=== PATIENT | male | born 1965 | race Caucasian/White ===

== ENCOUNTER 2016-07-20 08:51 | Inpatient (IN) | payer OTHER ==
[~2016-07-20] VITALS: Ht 182.9 cm; Wt 65.1 kg
[2016-07-20] MEDS ORDERED: ASPI-496 PO (09:36)
[2016-07-20] MEDS ORDERED: METO25TA2 PO (09:46)
[2016-07-20] MEDS ORDERED: POTA10TA11 PO (09:46)
[2016-07-20] MEDS ORDERED: IPRA12.9 INH (09:46)
[2016-07-20] MEDS ORDERED: [UNRECOGNIZED DRUG - CODE] PO (09:46)
[2016-07-20] MEDS ORDERED: FURO20TA3 PO (09:46)
[2016-07-20] MEDS ORDERED: ALBUTEROL (09:46)
[2016-07-20] MEDS ORDERED: LISI-170 PO (09:46)
[2016-07-20] MEDS ORDERED: FUROSEMIDE 20 MG/2 ML ONE (09:57)
[2016-07-20] MEDS ORDERED: FUROSEMIDE 20 MG/2 ML IVPush ONE (10:00)
[2016-07-20] MEDS ORDERED: SODIUM CHLORIDE FLUSH 10ML SYR IVF ONE (10:00)
[2016-07-20 10:02] LABS: HEMOGLOBIN 15.4 g/dL (13.7-18.0)
[2016-07-20 10:15] LABS: BLOOD UREA NITROGEN 26 mg/dL (7-18)
[2016-07-20 10:20] LABS: IS PT STATUS REG ER OR PRE ER? YES
[2016-07-20] MEDS ORDERED: LEVOFLOXACIN/PMX 750MG/150ML 150 ML ONE (11:49)
[2016-07-20] MEDS ORDERED: LEVOFLOXACIN/PMX 750MG/150ML 150 ML IV ONE (12:00)
[2016-07-20] MEDS ORDERED: ACETAMINOPHEN 325 MG TABLET PO PRN (12:30)
[2016-07-20] MEDS ORDERED: ONDANSETRON 2MG/ML, 2ML IVP PRN (12:30)
[2016-07-20] MEDS ORDERED: MORPHINE SULFATE 4 MG/ML, 1ML IVPush PRN (12:30)
[2016-07-20] MEDS ORDERED: ONDANSETRON ODT 4 MG PO PRN (12:30)
[2016-07-20 13:16] VITALS: BP 139/81
[2016-07-20] MEDS ORDERED: OMNIPAQUE 350 MG/ML, 100ML BOTTLE ONE (13:43)
[2016-07-20] MEDS ORDERED: ALBUTEROL SULFATE 2.5 MG/3 ML ONE (14:15)
[2016-07-20] MEDS ORDERED: ALBUTEROL SULFATE 2.5 MG/3 ML NPPB PRN (14:30)
[2016-07-20] MEDS: CEFTRIAXONE PMX 1GM/50ML 50 ML IV SCH (14:57)
[2016-07-20] MEDS: NICOTINE 14MG/24 HR PATCH.TD24 TD SCH (15:04)
[2016-07-20] MEDS: ENOXAPARIN 40 MG/0.4 ML SQ SCH (15:04)
[2016-07-20 15:19] LABS: IS PT STATUS REG ER OR PRE ER? NO
[2016-07-20] MEDS: DOXYCYCLINE 100 MG in DEXTROSE 5% 250 ML IV SCH (15:21)
[2016-07-20] MEDS: FUROSEMIDE 20 MG/2 ML IV SCH (17:47)
[2016-07-20 22:59] LABS: IS PT STATUS REG ER OR PRE ER? NO
[2016-07-21 02:42] VITALS: BP 120/85
[2016-07-21] MEDS: DOXYCYCLINE 100 MG in DEXTROSE 5% 250 ML IV SCH ×2 (02:51→15:43)
[2016-07-21 06:38] VITALS: BP 122/77
[2016-07-21 06:59] LABS: HEMOGLOBIN 14.9 g/dL (13.7-18.0)
[2016-07-21 07:03] LABS: BLOOD UREA NITROGEN 26 mg/dL (7-18)
[2016-07-21 07:08] LABS: ASPARTATE AMINO TRANSFERASE 138 U/L (15-37)
[2016-07-21] MEDS: METOPROLOL SUCCINATE 25 MG TAB.ER.24H PO SCH (08:31)
[2016-07-21] MEDS: ASPIRIN 81 MG TABLET EC PO SCH (08:31)
[2016-07-21] MEDS: FUROSEMIDE 20 MG/2 ML IV SCH (08:31)
[2016-07-21 10:48] LABS: IS PT STATUS REG ER OR PRE ER? NO
[2016-07-21 12:30] VITALS: BP 107/66
[2016-07-21] MEDS: NICOTINE 14MG/24 HR PATCH.TD24 TD SCH (12:30)
[2016-07-21] MEDS: CEFTRIAXONE PMX 1GM/50ML 50 ML IV SCH (14:10)
[2016-07-21] MEDS ORDERED: LORazepam 2 MG/ML, 1ML IVPush PRN (15:30)
[2016-07-21] MEDS: FUROSEMIDE 40 MG/4 ML IV SCH (15:43)
[2016-07-21] MEDS: ENOXAPARIN 40 MG/0.4 ML SQ SCH (15:44)
[2016-07-21 15:48] LABS: ABG COLLECTION SITE RIGHT RADIAL; COLLATERAL CIRCULATION TESTING NORMAL
[2016-07-21 20:00] VITALS: BP 110/58
[2016-07-22 01:26] VITALS: BP 112/62
[2016-07-22] MEDS: DOXYCYCLINE 100 MG in DEXTROSE 5% 250 ML IV SCH ×2 (03:50→15:07)
[2016-07-22 06:14] LABS: ASPARTATE AMINO TRANSFERASE 100 U/L (15-37); BLOOD UREA NITROGEN 32 mg/dL (7-18)
[2016-07-22 06:30] VITALS: BP 99/49
[2016-07-22 09:15] VITALS: BP 117/85
[2016-07-22] MEDS: ASPIRIN 81 MG TABLET EC PO SCH (09:33)
[2016-07-22] MEDS: METOPROLOL SUCCINATE 25 MG TAB.ER.24H PO SCH (09:33)
[2016-07-22] MEDS: FUROSEMIDE 40 MG/4 ML IV SCH ×2 (09:34→18:03)
[2016-07-22] MEDS: LISINOPRIL 5 MG TABLET PO SCH (09:34)
[2016-07-22] MEDS: NICOTINE 14MG/24 HR PATCH.TD24 TD SCH (12:30)
[2016-07-22 12:34] VITALS: BP 107/77
[2016-07-22] MEDS: CEFTRIAXONE PMX 1GM/50ML 50 ML IV SCH (14:07)
[2016-07-22] MEDS: ENOXAPARIN 40 MG/0.4 ML SQ SCH (15:08)
[2016-07-22 20:00] VITALS: BP 112/74
[2016-07-23] VITALS (7 sets, daily range): BP systolic 91–106; BP diastolic 55–74
[2016-07-23] MEDS: DOXYCYCLINE 100 MG in DEXTROSE 5% 250 ML IV SCH ×3 (05:14→20:19)
[2016-07-23 09:02] LABS: BLOOD UREA NITROGEN 29 mg/dL (7-18)
[2016-07-23] MEDS: METOPROLOL SUCCINATE 25 MG TAB.ER.24H PO SCH (09:16)
[2016-07-23] MEDS: LISINOPRIL 5 MG TABLET PO SCH (09:16)
[2016-07-23] MEDS: POTASSIUM CHLORIDE 20 MEQ TAB.ER.PRT PO SCH (09:16)
[2016-07-23] MEDS: ASPIRIN 81 MG TABLET EC PO SCH (09:16)
[2016-07-23] MEDS: FUROSEMIDE 40 MG/4 ML IV SCH ×2 (09:16→17:00)
[2016-07-23] MEDS: NICOTINE 14MG/24 HR PATCH.TD24 TD SCH (13:40)
[2016-07-23 14:55] LABS: BLOOD UREA NITROGEN 26 mg/dL (7-18)
[2016-07-23 14:58] LABS: ASPARTATE AMINO TRANSFERASE 93 U/L (15-37)
[2016-07-23] MEDS ORDERED: MAGNESIUM SULFATE PMX 2GM/50ML 50 ML IV ONE (16:00)
[2016-07-23] MEDS: CEFTRIAXONE PMX 1GM/50ML 50 ML IV SCH (16:02)
[2016-07-23] MEDS: ENOXAPARIN 40 MG/0.4 ML SQ SCH (16:02)
[2016-07-24 03:58] VITALS: BP 98/69
[2016-07-24 06:53] LABS: ASPARTATE AMINO TRANSFERASE 93 U/L (15-37); BLOOD UREA NITROGEN 26 mg/dL (7-18)
[2016-07-24] MEDS: DOXYCYCLINE 100 MG in DEXTROSE 5% 250 ML IV SCH (07:00)
[2016-07-24] MEDS: FUROSEMIDE 40 MG/4 ML IV SCH ×2 (07:30→11:00)
[2016-07-24 08:48] VITALS: BP 98/68
[2016-07-24] MEDS: POTASSIUM CHLORIDE 20 MEQ TAB.ER.PRT PO SCH (11:00)
[2016-07-24] MEDS: DOXYCYCLINE 100MG TABLET PO SCH ×2 (11:00→20:52)
[2016-07-24] MEDS: ASPIRIN 81 MG TABLET EC PO SCH (11:01)
[2016-07-24] MEDS: MAGNESIUM OXIDE 400 MG TABLET PO SCH (11:01)
[2016-07-24] MEDS: METOPROLOL SUCCINATE 25 MG TAB.ER.24H PO SCH (11:01)
[2016-07-24] MEDS: LISINOPRIL 5 MG TABLET PO SCH (11:01)
[2016-07-24 13:17] VITALS: BP 101/68
[2016-07-24] MEDS: ENOXAPARIN 40 MG/0.4 ML SQ SCH (15:00)
[2016-07-24] MEDS: NICOTINE 14MG/24 HR PATCH.TD24 TD SCH (16:02)
[2016-07-24] MEDS: CEFTRIAXONE PMX 1GM/50ML 50 ML IV SCH (16:02)
[2016-07-24 18:38] VITALS: BP 103/64
[2016-07-25 02:06] VITALS: BP 99/68
[2016-07-25 06:08] LABS: ASPARTATE AMINO TRANSFERASE 123 U/L (15-37); BLOOD UREA NITROGEN 30 mg/dL (7-18)
[2016-07-25] MEDS ORDERED: DOXY100T PO (08:10)
[2016-07-25] MEDS ORDERED: CEFD300C2 PO (08:10)
[2016-07-25 08:24] VITALS: BP 103/72
[2016-07-25] MEDS: LISINOPRIL 5 MG TABLET PO SCH (08:31)
[2016-07-25] MEDS: FUROSEMIDE 40 MG/4 ML IV SCH (08:31)
[2016-07-25] MEDS: ASPIRIN 81 MG TABLET EC PO SCH (08:31)
[2016-07-25] MEDS: MAGNESIUM OXIDE 400 MG TABLET PO SCH (08:31)
[2016-07-25] MEDS: POTASSIUM CHLORIDE 20 MEQ TAB.ER.PRT PO SCH (08:31)
[2016-07-25] MEDS: DOXYCYCLINE 100MG TABLET PO SCH (08:31)
[2016-07-25] MEDS: METOPROLOL SUCCINATE 25 MG TAB.ER.24H PO SCH (08:32)
[2016-07-25] MEDS ORDERED: SPIR25TA PO (08:41)
== END 2016-07-25 10:40 | disposition home or self-care (01) | DRG 291 ==
LOC: ED 10:03 → EDIP 11:43 → 4EST 12:52 → DCLOUNGE 07-25 10:07
PROVIDERS: ADMIT Internal Medicine; ATTEND Internal Medicine
DX: I11.0 Hypertensive heart disease with heart failure (principal); J18.9 Pneumonia, unspecified organism; E43 Unspecified severe protein-calorie malnutrition; N17.0 Acute kidney failure with tubular necrosis; E87.1 Hypo-osmolality and hyponatremia; J44.0 Chronic obstructive pulmonary disease with (acute) lower respiratory infection; I47.2 Ventricular tachycardia; Z68.1 Body mass index [BMI] 19.9 or less, adult; I24.8 Other forms of acute ischemic heart disease; I50.23 Acute on chronic systolic (congestive) heart failure; I42.0 Dilated cardiomyopathy; E87.5 Hyperkalemia; F17.210 Nicotine dependence, cigarettes, uncomplicated; I27.2 Other secondary pulmonary hypertension; K76.1 Chronic passive congestion of liver; I25.10 Atherosclerotic heart disease of native coronary artery without angina pectoris; Z87.01 Personal history of pneumonia (recurrent); Z88.0 Allergy status to penicillin; Z88.5 Allergy status to narcotic agent; Z79.82 Long term (current) use of aspirin; Z79.899 Other long term (current) drug therapy; Z71.6 Tobacco abuse counseling; Z80.3 Family history of malignant neoplasm of breast; Z83.3 Family history of diabetes mellitus; Z82.49 Family history of ischemic heart disease and other diseases of the circulatory system
CPT/HCPCS: 36415; 36600; 71010; 71275; 80047; 80048; 80053; 80061; 82040; 82803; 83605; 83735; 83880; 84100; 84443; 84484; 85025; 85379; 87040; 93005; 93306; 94640; 96374; J0696; J1650; J1940; J1956; J7060; J7613; Q9967; J2060; J3475

== ENCOUNTER 2016-11-04 08:27 | Inpatient (IN) | payer OTHER ==
[~2016-11-04] VITALS: Ht 180.3 cm; Wt 69.8 kg
[~2016-11-04 08:27] MED LIST: ALBUTEROL; ASPI-496 PO; CEFD300C37 PO; DOXY100T PO; FURO20TA3 PO; IPRA12.9 INH; LISI-170 PO; METO25TA2 PO; POTA10TA11 PO; SPIR25TA PO; [UNRECOGNIZED DRUG - CODE] PO
[2016-11-04] MEDS ORDERED: FUROSEMIDE 40 MG/4 ML IV ONE (09:30)
[2016-11-04 09:38] LABS: BLOOD UREA NITROGEN 26 mg/dL (7-18)
[2016-11-04 09:44] LABS: ASPARTATE AMINO TRANSFERASE 101 U/L (15-37)
[2016-11-04 09:45] LABS: IS PT STATUS REG ER OR PRE ER? YES
[2016-11-04] MEDS ORDERED: ONDANSETRON 2MG/ML, 2ML IVPush PRN ×2 (10:00→15:00)
[2016-11-04] MEDS ORDERED: SODIUM CHLORIDE FLUSH 10ML SYR IVF PRN (10:00)
[2016-11-04] MEDS ORDERED: FUROSEMIDE 40 MG/4 ML ONE ×2 (10:09→10:19)
[2016-11-04] MEDS ORDERED: GUAIFENESIN/DM 200-20MG, 10ML UDC PO PRN (15:00)
[2016-11-04] MEDS ORDERED: DOCUSATE 100 MG CAPSULE PO PRN (15:00)
[2016-11-04] MEDS ORDERED: LABETALOL 5MG/ML, 20ML IVPush PRN (15:00)
[2016-11-04] MEDS ORDERED: ACETAMINOPHEN 325 MG TABLET PO PRN (15:00)
[2016-11-04] MEDS ORDERED: NITROGLYCERIN 0.4 MG/SPRAY SL PRN (15:00)
[2016-11-04] MEDS ORDERED: TEMAZEPAM 15 MG CAPSULE PO PRN (15:00)
[2016-11-04] MEDS ORDERED: ENALAPRILAT 1.25 MG/ML, 2ML IVPush PRN (15:00)
[2016-11-04 15:33] LABS: IS PT STATUS REG ER OR PRE ER? NO
[2016-11-04 20:02] VITALS: BP 126/72
[2016-11-04] MEDS: ENOXAPARIN 40 MG/0.4 ML SQ SCH (20:12)
[2016-11-04] MEDS: POTASSIUM CHLORIDE 10 MEQ TABLET.ER PO SCH (20:12)
[2016-11-04] MEDS: FUROSEMIDE 20 MG/2 ML IV SCH (20:12)
[2016-11-04 20:19] LABS: IS PT STATUS REG ER OR PRE ER? NO
[2016-11-05 01:09] VITALS: BP 108/64
[2016-11-05 06:28] LABS: BLOOD UREA NITROGEN 31 mg/dL (7-18)
[2016-11-05 06:35] LABS: ASPARTATE AMINO TRANSFERASE 71 U/L (15-37)
[2016-11-05] MEDS ORDERED: HYDROcodone/CHLORPHENIR ORAL SUSP ONE (07:49)
[2016-11-05] MEDS: SPIRONOLACTONE 25 MG TABLET PO SCH (07:53)
[2016-11-05] MEDS: FUROSEMIDE 20 MG/2 ML IV SCH ×2 (07:53→19:44)
[2016-11-05] MEDS: ASPIRIN 81 MG TABLET EC PO SCH (07:53)
[2016-11-05] MEDS: LISINOPRIL 20 MG TABLET PO SCH (07:54)
[2016-11-05] MEDS: METOPROLOL SUCCINATE 25 MG TAB.ER.24H PO SCH (07:54)
[2016-11-05] MEDS: POTASSIUM CHLORIDE 10 MEQ TABLET.ER PO SCH ×2 (07:54→19:43)
[2016-11-05] MEDS: HYDROcodone/CHLORPHENIR ORAL SUSP PO SCH (07:56)
[2016-11-05 10:21] VITALS: BP 94/65
[2016-11-05 14:45] VITALS: BP 102/69
[2016-11-05] MEDS: ENOXAPARIN 40 MG/0.4 ML SQ SCH (19:44)
[2016-11-05 19:45] VITALS: BP 110/62
[2016-11-06 00:54] VITALS: BP 110/62
[2016-11-06 05:02] LABS: BLOOD UREA NITROGEN 39 mg/dL (7-18)
[2016-11-06 05:05] LABS: ASPARTATE AMINO TRANSFERASE 42 U/L (15-37)
[2016-11-06] MEDS: THIAMINE 100MG TABLET PO SCH (08:14)
[2016-11-06] MEDS: LISINOPRIL 20 MG TABLET PO SCH (08:14)
[2016-11-06] MEDS: ASPIRIN 81 MG TABLET EC PO SCH (08:14)
[2016-11-06] MEDS: FOLIC ACID 1 MG TABLET PO SCH (08:14)
[2016-11-06] MEDS: FUROSEMIDE 20 MG/2 ML IV SCH ×2 (08:14→17:36)
[2016-11-06] MEDS: MULTIVIT.W/IRON, MINERALS ORAL SOL PO SCH (08:14)
[2016-11-06] MEDS: SPIRONOLACTONE 25 MG TABLET PO SCH (08:14)
[2016-11-06] MEDS: POTASSIUM CHLORIDE 10 MEQ TABLET.ER PO SCH ×2 (08:14→17:36)
[2016-11-06 08:19] VITALS: BP 97/61
[2016-11-06 09:15] LABS: HEPATITIS C VIRUS ANTIBODY Nonreactive (Nonreactive)
[2016-11-06] MEDS: METOPROLOL SUCCINATE 25 MG TAB.ER.24H PO SCH (11:04)
[2016-11-06] MEDS: HYDROcodone/CHLORPHENIR ORAL SUSP PO SCH (12:04)
[2016-11-06] MEDS ORDERED: BIVALIRUDIN 250 MG ONE (13:21)
[2016-11-06] MEDS ORDERED: VERAPAMIL 2.5 MG/ML, 2ML ONE (13:21)
[2016-11-06] MEDS ORDERED: MIDAZOLAM 1 MG/ML, 5ML ONE (13:21)
[2016-11-06] MEDS ORDERED: TICAGRELOR 90 MG TABLET ONE (13:21)
[2016-11-06] MEDS ORDERED: HEPARIN 1,000 UNITS/ML, 10ML ONE (13:21)
[2016-11-06] MEDS ORDERED: NITROGLYCERIN 5 MG/ML, 10ML ONE (13:21)
[2016-11-06] MEDS ORDERED: LIDOCAINE 2%, 20ML ONE (13:21)
[2016-11-06] MEDS ORDERED: FENTANYL PF 100 MCG/2ML ONE (13:21)
[2016-11-06 15:40] VITALS: BP 89/55
[2016-11-06 19:58] VITALS: BP 97/64
[2016-11-06] MEDS: ENOXAPARIN 40 MG/0.4 ML SQ SCH (21:05)
[2016-11-07 02:41] VITALS: BP 107/72
[2016-11-07 05:33] LABS: BLOOD UREA NITROGEN 38 mg/dL (7-18)
[2016-11-07 07:50] VITALS: BP 123/80
[2016-11-07] MEDS ORDERED: PNEUMOCOCCAL 23 VACCINE IM-VACC ONE (08:00)
[2016-11-07] MEDS ORDERED: LISINOPRIL 20 MG TABLET PO SCH (09:00)
[2016-11-07] MEDS ORDERED: METOPROLOL SUCCINATE 25 MG TAB.ER.24H PO SCH (09:00)
[2016-11-07] MEDS: FOLIC ACID 1 MG TABLET PO SCH (09:17)
[2016-11-07] MEDS: ASPIRIN 81 MG TABLET EC PO SCH (09:17)
[2016-11-07] MEDS: POTASSIUM CHLORIDE 10 MEQ TABLET.ER PO SCH (09:17)
[2016-11-07] MEDS: FUROSEMIDE 20 MG/2 ML IV SCH (09:18)
[2016-11-07] MEDS: SPIRONOLACTONE 25 MG TABLET PO SCH (09:18)
[2016-11-07] MEDS: THIAMINE 100MG TABLET PO SCH (09:18)
[2016-11-07] MEDS: HYDROcodone/CHLORPHENIR ORAL SUSP PO SCH (09:20)
[2016-11-07] MEDS: MULTIVIT.W/IRON, MINERALS ORAL SOL PO SCH (09:20)
[2016-11-07] MEDS ORDERED: RIVAROXABAN 20 MG TABLET PO SCH (11:00)
[2016-11-07] MEDS ORDERED: FOLI-17 PO (11:50)
[2016-11-07] MEDS ORDERED: MULT9LIQ3 PO (11:50)
[2016-11-07] MEDS ORDERED: THIA100T6 PO (11:50)
[2016-11-07] MEDS ORDERED: POTA10TA5 PO (11:50)
[2016-11-07] MEDS ORDERED: RIVA20TA PO (11:50)
[2016-11-07] MEDS ORDERED: FURO20TA3 PO (11:50)
[2016-11-07] MEDS ORDERED: SPIR25TA PO (11:50)
[2016-11-07] MEDS ORDERED: ASPI-496 PO (11:50)
[2016-11-07] MEDS ORDERED: METO25TA2 PO (11:50)
[2016-11-07] MEDS ORDERED: LISI-170 PO (11:50)
[2016-11-08] MEDS ORDERED: FUROSEMIDE 40 MG TABLET PO SCH (09:00)
== END 2016-11-07 13:40 | disposition home or self-care (01) | DRG 286 ==
LOC: ED 09:30 → EDIP 09:56 → 5SO 11:33 → DCLOUNGE 11-07 12:09
PROVIDERS: ADMIT Hospitalist; ATTEND Hospitalist
PROC: 4A023N7 Measurement of Cardiac Sampling and Pressure, Left Heart, Percutaneous Approach (ICD-10-PCS; principal; 2016-11-06)
PROC: B2111ZZ Fluoroscopy of Multiple Coronary Arteries using Low Osmolar Contrast (ICD-10-PCS; 2016-11-06)
PROC: B2151ZZ Fluoroscopy of Left Heart using Low Osmolar Contrast (ICD-10-PCS; 2016-11-06)
DX: I25.10 Atherosclerotic heart disease of native coronary artery without angina pectoris (principal); I50.21 Acute systolic (congestive) heart failure; N17.9 Acute kidney failure, unspecified; I11.0 Hypertensive heart disease with heart failure; J44.9 Chronic obstructive pulmonary disease, unspecified; F17.210 Nicotine dependence, cigarettes, uncomplicated; F15.10 Other stimulant abuse, uncomplicated; Z87.01 Personal history of pneumonia (recurrent); Z88.5 Allergy status to narcotic agent; Z88.0 Allergy status to penicillin; Z91.19 Patient's noncompliance with other medical treatment and regimen; Z72.89 Other problems related to lifestyle; Z71.6 Tobacco abuse counseling; Z59.9 Problem related to housing and economic circumstances, unspecified
CPT/HCPCS: 36415; 71010; 76700; 80048; 80053; 80074; 83735; 83880; 84100; 84443; 84484; 85025; 90732; 93005; 93306; 93454; 96374; 99156; C1760; C1894; J0583; J1644; J1650; J1940; J2250; J3010; J3490; Q9967

== ENCOUNTER 2016-11-13 09:20 | Inpatient (IN) | payer OTHER ==
[~2016-11-13] VITALS: Ht 182.9 cm; Wt 68.4 kg
[~2016-11-13 09:20] MED LIST changes: +FOLI-17 PO; +MULT9LIQ3 PO; +POTA10TA5 PO; +RIVA20TA PO; +THIA100T6 PO
[2016-11-13] MEDS ORDERED: SODIUM CHLORIDE FLUSH 10ML SYR IVF ONE (09:30)
[2016-11-13 09:54] LABS: HEMATOCRIT 41.5 % (39.2-51.8); HEMOGLOBIN 13.4 g/dL (13.7-18.0); WHITE BLOOD COUNT 19.3 x10^3/uL (3.4-10)
[2016-11-13 09:57] LABS: BLOOD UREA NITROGEN 29 mg/dL (7-18)
[2016-11-13 10:01] LABS: IS PT STATUS REG ER OR PRE ER? YES
[2016-11-13] MEDS ORDERED: LEVOFLOXACIN/PMX 750MG/150ML 150 ML IVPB ONE (10:30)
[2016-11-13] MEDS ORDERED: SODIUM CHLORIDE 0.9% 1,000ML IVBOLUS ONE (10:30)
[2016-11-13] MEDS ORDERED: RIVA20TA PO (10:31)
[2016-11-13 10:36] LABS: DIFF TOTAL CELLS COUNTED 100 CELL DIFF
[2016-11-13] MEDS ORDERED: ALBU18HF INH (10:36)
[2016-11-13 10:38] LABS: VERIFY COUNTS? YES
[2016-11-13 10:39] LABS: ANISOCYTOSIS 1+; POLYCHROMASIA 1+
[2016-11-13] MEDS ORDERED: SODIUM CHLORIDE 0.9% 1,000 ML IV ONE (11:30)
[2016-11-13] MEDS ORDERED: MIDAZOLAM 1 MG/ML, 5ML IVPush ONE ×2 (11:30→12:30)
[2016-11-13] MEDS ORDERED: ETOMIDATE 20 MG/10 ML IVPush ONE (11:30)
[2016-11-13] MEDS ORDERED: PROPOFOL 100 ML IV PRN (11:30)
[2016-11-13] MEDS ORDERED: VECURONIUM 10 MG IVPush ONE (11:30)
[2016-11-13] MEDS ORDERED: LEVOFLOXACIN/PMX 750MG/150ML 150 ML ONE (11:33)
[2016-11-13 11:41] LABS: ABG COLLECTION SITE LEFT RADIAL; COLLATERAL CIRCULATION TESTING NORMAL
[2016-11-13] MEDS ORDERED: PIPERACILLIN/TAZO/PMX 3.375GM 50 ML ONE (11:56)
[2016-11-13] MEDS: PIPERACILLIN/TAZO/PMX 3.375GM 50 ML IV SCH ×2 (12:00→17:46)
[2016-11-13] MEDS ORDERED: BISACODYL 10 MG SUPP PR PRN ×2 (12:00→13:00)
[2016-11-13] MEDS ORDERED: VANCOMYCIN PER PHARMACY MC PRN (12:00)
[2016-11-13] MEDS ORDERED: DOCUSATE 100 MG CAPSULE PO PRN (12:00)
[2016-11-13] MEDS ORDERED: POLYETHYLENE GLYCOL 17 GM PACKET PO PRN (12:00)
[2016-11-13] MEDS ORDERED: NOREPINEPHRINE 4 MG in SODIUM CHLORIDE 0.9% 246 ML IV PRN ×2 (12:30→18:00)
[2016-11-13 12:40] LABS: ABG COLLECTION SITE RIGHT RADIAL; COLLATERAL CIRCULATION TESTING NORMAL
[2016-11-13] MEDS ORDERED: LACTULOSE 20 GM/30 ML UDC NG PRN (13:00)
[2016-11-13] MEDS ORDERED: SENNOSIDES 8.8 MG/5 ML ORAL SOL NG PRN (13:00)
[2016-11-13] MEDS ORDERED: PHARMACOKINETIC CONSULTATION MC ONE (13:00)
[2016-11-13] MEDS ORDERED: PHARMACOKINETIC MONITORING MC PRN (13:00)
[2016-11-13] MEDS ORDERED: SENNA/DOCUSATE TABLET NG PRN (13:00)
[2016-11-13] MEDS ORDERED: PHARMACY MAY ADJ FOR RENAL FX MC SCH (13:00)
[2016-11-13] MEDS ORDERED: LIDOCAINE-MPF 1%, 2ML ENDO PRN (13:00)
[2016-11-13] MEDS: VANCOMYCIN 1,200 MG in SODIUM CHLORIDE 0.9% 250 ML IV SCH (13:34)
[2016-11-13] MEDS: HEPARIN 5,000 UNITS/ML, 1ML SQ SCH ×2 (13:35→21:19)
[2016-11-13 14:15] LABS: ABG COLLECTION SITE RIGHT RADIAL; COLLATERAL CIRCULATION TESTING NORMAL
[2016-11-13] MEDS: FAMOTIDINE 20 MG/2 ML IV SCH (14:26)
[2016-11-13 14:47] LABS: IS PT STATUS REG ER OR PRE ER? NO
[2016-11-13] MEDS: ALBUTEROL/IPRATROPIUM 2.5MG/0.5MG, 3 ML INLINE SCH ×3 (14:48→22:49)
[2016-11-13] MEDS ORDERED: VECURONIUM 10 MG ONE (15:56)
[2016-11-13] MEDS ORDERED: MIDAZOLAM 1 MG/ML, 5ML ONE (15:56)
[2016-11-13] MEDS ORDERED: PROPOFOL 10 MG/ML, 100ML IV ONE (15:56)
[2016-11-13] MEDS ORDERED: ETOMIDATE 20 MG/10 ML ONE (15:56)
[2016-11-13] MEDS ORDERED: SUCCINYLCHOLINE 20 MG/ML, 10ML ONE (15:56)
[2016-11-13 16:13] LABS: DAU SCREEN DISCLAIMER
[2016-11-13] MEDS: PROPOFOL 100 ML IV PRN ×2 (17:46→21:18)
[2016-11-13] MEDS ORDERED: ACETAMINOPHEN 325 MG TABLET ONE (18:01)
[2016-11-13] MEDS: ACETAMINOPHEN 325 MG TABLET PO PRN (18:12)
[2016-11-13] MEDS ORDERED: DIAZEPAM 5 MG/ML, 2ML ONE (18:17)
[2016-11-13] MEDS ORDERED: DIAZEPAM 5 MG/ML, 2ML IV ONE (18:30)
[2016-11-13] MEDS ORDERED: FAMOTIDINE 20 MG/2 ML IVPush SCH (21:00)
[2016-11-13 22:47] LABS: IS PT STATUS REG ER OR PRE ER? NO
[2016-11-13] MEDS ORDERED: HEPARIN 5,000 UNITS/ML, 1ML IV ONE (23:00)
[2016-11-13] MEDS: HEPARIN 25,000 UNITS/500ML PMX 500 ML IV PRN (23:19)
[2016-11-14] MEDS: PIPERACILLIN/TAZO/PMX 3.375GM 50 ML IV SCH ×5 (00:33→23:57)
[2016-11-14] MEDS: FAMOTIDINE 20 MG/2 ML IV SCH ×2 (00:33→12:29)
[2016-11-14] MEDS: VANCOMYCIN 1,200 MG in SODIUM CHLORIDE 0.9% 250 ML IV SCH ×2 (02:09→13:37)
[2016-11-14] MEDS: PROPOFOL 100 ML IV PRN ×5 (02:09→23:49)
[2016-11-14] MEDS: ALBUTEROL/IPRATROPIUM 2.5MG/0.5MG, 3 ML INLINE SCH ×6 (02:34→23:00)
[2016-11-14 04:00] VITALS: BP 91/66
[2016-11-14 05:45] LABS: ABG COLLECTION SITE RIGHT RADIAL; COLLATERAL CIRCULATION TESTING NORMAL
[2016-11-14 05:49] LABS: HEMATOCRIT 38.6 % (39.2-51.8); HEMOGLOBIN 12.5 g/dL (13.7-18.0); WHITE BLOOD COUNT 16.4 x10^3/uL (3.4-10)
[2016-11-14 06:00] LABS: ASPARTATE AMINO TRANSFERASE 143 U/L (15-37); BLOOD UREA NITROGEN 24 mg/dL (7-18)
[2016-11-14] MEDS ORDERED: SODIUM CHLORIDE 0.9%, 250ML IVBOLUS ONE (09:30)
[2016-11-14] MEDS: HEPARIN 5,000 UNITS/ML, 1ML IV PRN (18:39)
[2016-11-14] MEDS: FENTANYL PF 100 MCG/2ML IVPush PRN (19:48)
[2016-11-14] MEDS: HEPARIN 25,000 UNITS/500ML PMX 500 ML IV PRN (23:51)
[2016-11-15] MEDS: HEPARIN 5,000 UNITS/ML, 1ML IV PRN ×4 (00:37→23:54)
[2016-11-15] MEDS: FAMOTIDINE 20 MG/2 ML IV SCH ×2 (00:55→12:34)
[2016-11-15] MEDS: FENTANYL PF 100 MCG/2ML IVPush PRN ×3 (01:55→17:23)
[2016-11-15] MEDS: VANCOMYCIN 1,200 MG in SODIUM CHLORIDE 0.9% 250 ML IV SCH ×2 (02:32→15:10)
[2016-11-15] MEDS: ALBUTEROL/IPRATROPIUM 2.5MG/0.5MG, 3 ML INLINE SCH ×6 (03:00→22:15)
[2016-11-15] MEDS: PROPOFOL 100 ML IV PRN (03:51)
[2016-11-15 04:00] VITALS: BP 89/68
[2016-11-15 04:33] LABS: HEMATOCRIT 36.8 % (39.2-51.8); WHITE BLOOD COUNT 18.5 x10^3/uL (3.4-10)
[2016-11-15 04:51] LABS: ASPARTATE AMINO TRANSFERASE 79 U/L (15-37); BLOOD UREA NITROGEN 26 mg/dL (7-18)
[2016-11-15 04:54] LABS: ABG COLLECTION SITE RIGHT RADIAL; COLLATERAL CIRCULATION TESTING NORMAL
[2016-11-15 04:55] LABS: IS PT STATUS REG ER OR PRE ER? NO
[2016-11-15] MEDS: PIPERACILLIN/TAZO/PMX 3.375GM 50 ML IV SCH ×4 (06:10→23:54)
[2016-11-15] MEDS ORDERED: SODIUM CHLORIDE 0.9%, 500ML IVBOLUS ONE (09:00)
[2016-11-15] MEDS: methylPREDNISolone SOD SUCC 125 MG/2 ML IVPush SCH ×3 (09:19→21:09)
[2016-11-15] MEDS: INSULIN REGULAR, HUMAN 100 UNITS/ML, 3ML MEDIUM DOSE SS SQ-INSULIN SCH ×2 (17:30→21:00)
[2016-11-15] MEDS: HEPARIN 25,000 UNITS/500ML PMX 500 ML IV PRN (19:06)
[2016-11-16] MEDS: FAMOTIDINE 20 MG/2 ML IV SCH ×2 (01:03→12:30)
[2016-11-16] MEDS: VANCOMYCIN 1,200 MG in SODIUM CHLORIDE 0.9% 250 ML IV SCH (01:58)
[2016-11-16] MEDS: ALBUTEROL/IPRATROPIUM 2.5MG/0.5MG, 3 ML INLINE SCH ×2 (02:39→06:41)
[2016-11-16] MEDS: methylPREDNISolone SOD SUCC 125 MG/2 ML IVPush SCH ×4 (03:00→21:00)
[2016-11-16] MEDS: INSULIN REGULAR, HUMAN 100 UNITS/ML, 3ML MEDIUM DOSE SS SQ-INSULIN SCH ×2 (03:39→09:37)
[2016-11-16 03:46] LABS: HEMOGLOBIN 11.8 g/dL (13.7-18.0); WHITE BLOOD COUNT 15.2 x10^3/uL (3.4-10)
[2016-11-16 04:00] VITALS: BP 85/66
[2016-11-16 04:07] LABS: BLOOD UREA NITROGEN 28 mg/dL (7-18)
[2016-11-16 04:51] LABS: ABG COLLECTION SITE LEFT RADIAL; COLLATERAL CIRCULATION TESTING NORMAL
[2016-11-16] MEDS: PIPERACILLIN/TAZO/PMX 3.375GM 50 ML IV SCH ×3 (05:58→17:39)
[2016-11-16] MEDS: HEPARIN 5,000 UNITS/ML, 1ML IV PRN ×2 (07:28→19:59)
[2016-11-16] MEDS: HEPARIN 25,000 UNITS/500ML PMX 500 ML IV PRN (09:39)
[2016-11-16] MEDS: ALBUTEROL/IPRATROPIUM 2.5MG/0.5MG, 3 ML NPPB SCH ×3 (11:00→19:04)
[2016-11-16] MEDS: INSULIN REGULAR 100 UNITS/ML, 3ML VIAL SQ-INSULIN SCH ×2 (16:55→21:01)
[2016-11-16] MEDS: FENTANYL PF 100 MCG/2ML IVPush PRN (19:59)
[2016-11-17] MEDS: PIPERACILLIN/TAZO/PMX 3.375GM 50 ML IV SCH ×4 (00:03→18:34)
[2016-11-17] MEDS: HEPARIN 25,000 UNITS/500ML PMX 500 ML IV PRN ×2 (00:05→12:58)
[2016-11-17] MEDS: FAMOTIDINE 20 MG/2 ML IV SCH ×2 (01:08→16:14)
[2016-11-17 02:36] LABS: ABG COLLECTION SITE RIGHT RADIAL; COLLATERAL CIRCULATION TESTING NORMAL
[2016-11-17 02:37] LABS: HEMATOCRIT 37.2 % (39.2-51.8); HEMOGLOBIN 11.8 g/dL (13.7-18.0); WHITE BLOOD COUNT 17.2 x10^3/uL (3.4-10)
[2016-11-17 02:49] LABS: BLOOD UREA NITROGEN 28 mg/dL (7-18)
[2016-11-17 02:52] LABS: ASPARTATE AMINO TRANSFERASE 87 U/L (15-37)
[2016-11-17] MEDS: methylPREDNISolone SOD SUCC 125 MG/2 ML IVPush SCH ×3 (02:56→21:10)
[2016-11-17] MEDS: HEPARIN 5,000 UNITS/ML, 1ML IV PRN ×3 (03:23→18:26)
[2016-11-17 03:58] VITALS: BP 103/84
[2016-11-17] MEDS: INSULIN REGULAR 100 UNITS/ML, 3ML VIAL SQ-INSULIN SCH ×4 (06:28→21:10)
[2016-11-17] MEDS: ALBUTEROL/IPRATROPIUM 2.5MG/0.5MG, 3 ML NPPB SCH ×4 (07:35→19:22)
[2016-11-17] MEDS: LISINOPRIL 5 MG TABLET PO SCH (09:41)
[2016-11-17] MEDS ORDERED: LIDOCAINE 1%, 20ML ONE (13:48)
[2016-11-17] MEDS ORDERED: WARFARIN 5 MG TABLET PO-COUM ONE (18:00)
[2016-11-17] MEDS ORDERED: WARFARIN 5 MG TABLET PO-COUM SCH (18:00)
[2016-11-17 19:15] VITALS: BP 111/65
[2016-11-17 21:15] VITALS: BP 112/77
[2016-11-18] MEDS: PIPERACILLIN/TAZO/PMX 3.375GM 50 ML IV SCH ×4 (00:05→19:20)
[2016-11-18] MEDS: HEPARIN 25,000 UNITS/500ML PMX 500 ML IV PRN ×3 (00:08→21:10)
[2016-11-18] MEDS: HEPARIN 5,000 UNITS/ML, 1ML IV PRN (01:34)
[2016-11-18 02:55] VITALS: BP 118/80
[2016-11-18] MEDS: FAMOTIDINE 20 MG/2 ML IV SCH (04:40)
[2016-11-18 06:23] LABS: ABG COLLECTION SITE LEFT RADIAL; COLLATERAL CIRCULATION TESTING NORMAL
[2016-11-18 06:27] LABS: HEMOGLOBIN 11.9 g/dL (13.7-18.0); WHITE BLOOD COUNT 13.7 x10^3/uL (3.4-10)
[2016-11-18 06:32] LABS: BLOOD UREA NITROGEN 28 mg/dL (7-18)
[2016-11-18 06:45] VITALS: BP 114/76
[2016-11-18] MEDS: ALBUTEROL/IPRATROPIUM 2.5MG/0.5MG, 3 ML NPPB SCH ×4 (07:25→19:33)
[2016-11-18] MEDS: methylPREDNISolone SOD SUCC 125 MG/2 ML IVPush SCH ×2 (08:21→20:51)
[2016-11-18] MEDS: LISINOPRIL 5 MG TABLET PO SCH (08:22)
[2016-11-18] MEDS: INSULIN REGULAR 100 UNITS/ML, 3ML VIAL SQ-INSULIN SCH ×4 (08:22→20:56)
[2016-11-18] MEDS: FAMOTIDINE 20 MG TABLET PO SCH ×2 (11:17→20:52)
[2016-11-18] MEDS: CARVEDILOL 3.125 MG TABLET PO SCH ×2 (11:17→20:52)
[2016-11-18 13:15] VITALS: BP 126/73
[2016-11-18] MEDS ORDERED: WARFARIN 5 MG TABLET PO-COUM SCH (18:00)
[2016-11-18 19:53] VITALS: BP 118/74
[2016-11-18] MEDS: TEMAZEPAM 15 MG CAPSULE PO PRN (21:10)
[2016-11-19] MEDS: PIPERACILLIN/TAZO/PMX 3.375GM 50 ML IV SCH ×4 (01:27→19:50)
[2016-11-19 02:46] VITALS: BP 108/69
[2016-11-19] MEDS: CARVEDILOL 3.125 MG TABLET PO SCH ×2 (06:14→17:23)
[2016-11-19 06:21] LABS: ABG COLLECTION SITE RIGHT RADIAL; COLLATERAL CIRCULATION TESTING NORMAL
[2016-11-19 06:24] LABS: HEMATOCRIT 37.9 % (39.2-51.8); HEMOGLOBIN 12.2 g/dL (13.7-18.0); WHITE BLOOD COUNT 13.8 x10^3/uL (3.4-10)
[2016-11-19 06:28] LABS: ANTI-Xa-UNFRACTIONATED HEP 0.68 IU/mL (0.30-0.70)
[2016-11-19 06:32] LABS: ASPARTATE AMINO TRANSFERASE 110 U/L (15-37); BLOOD UREA NITROGEN 24 mg/dL (7-18)
[2016-11-19 06:53] VITALS: BP 116/83
[2016-11-19] MEDS: ALBUTEROL/IPRATROPIUM 2.5MG/0.5MG, 3 ML NPPB SCH ×4 (07:14→19:59)
[2016-11-19] MEDS: methylPREDNISolone SOD SUCC 125 MG/2 ML IVPush SCH (09:00)
[2016-11-19] MEDS: INSULIN REGULAR 100 UNITS/ML, 3ML VIAL SQ-INSULIN SCH ×4 (09:16→21:00)
[2016-11-19] MEDS: HEPARIN 25,000 UNITS/500ML PMX 500 ML IV PRN ×2 (09:20→19:56)
[2016-11-19] MEDS: LISINOPRIL 5 MG TABLET PO SCH (09:22)
[2016-11-19] MEDS: FAMOTIDINE 20 MG TABLET PO SCH ×2 (09:22→19:50)
[2016-11-19 10:55] VITALS: BP 115/74
[2016-11-19] MEDS: SPIRONOLACTONE 25 MG TABLET PO SCH (10:56)
[2016-11-19] MEDS: FUROSEMIDE 40 MG TABLET PO SCH (10:56)
[2016-11-19] MEDS: GLIPizide ER 5 MG TABLET PO SCH (10:59)
[2016-11-19 15:26] VITALS: BP 121/84
[2016-11-19 17:18] VITALS: BP 121/91
[2016-11-19] MEDS ORDERED: WARFARIN 5 MG TABLET PO-COUM ONE (18:00)
[2016-11-19 19:40] VITALS: BP 121/85
[2016-11-19] MEDS: TEMAZEPAM 15 MG CAPSULE PO PRN (20:49)
[2016-11-19] MEDS ORDERED: methylPREDNISolone SOD SUCC 40 MG/ML IVPush SCH (21:00)
[2016-11-20 00:55] VITALS: BP 128/83
[2016-11-20] MEDS: PIPERACILLIN/TAZO/PMX 3.375GM 50 ML IV SCH ×4 (02:32→21:18)
[2016-11-20] MEDS: CARVEDILOL 3.125 MG TABLET PO SCH ×2 (05:38→17:27)
[2016-11-20 06:03] LABS: HEMATOCRIT 39.4 % (39.2-51.8); HEMOGLOBIN 12.7 g/dL (13.7-18.0); WHITE BLOOD COUNT 17.1 x10^3/uL (3.4-10)
[2016-11-20 06:14] LABS: BLOOD UREA NITROGEN 28 mg/dL (7-18)
[2016-11-20 06:46] VITALS: BP 124/88
[2016-11-20] MEDS: ALBUTEROL/IPRATROPIUM 2.5MG/0.5MG, 3 ML NPPB SCH ×4 (07:00→20:30)
[2016-11-20] MEDS: HEPARIN 25,000 UNITS/500ML PMX 500 ML IV PRN ×2 (07:30→19:10)
[2016-11-20] MEDS: INSULIN REGULAR 100 UNITS/ML, 3ML VIAL SQ-INSULIN SCH ×4 (07:32→21:19)
[2016-11-20] MEDS ORDERED: POTASSIUM PHOSPHATE 44 MEQ in SODIUM CHLORIDE 0.9% 500 ML IV ONE (09:00)
[2016-11-20 09:50] VITALS: BP 123/88
[2016-11-20] MEDS: GLIPizide ER 5 MG TABLET PO SCH (09:57)
[2016-11-20] MEDS: FUROSEMIDE 40 MG TABLET PO SCH (09:58)
[2016-11-20] MEDS: SPIRONOLACTONE 25 MG TABLET PO SCH (09:58)
[2016-11-20] MEDS: FAMOTIDINE 20 MG TABLET PO SCH ×2 (09:59→21:18)
[2016-11-20] MEDS: LISINOPRIL 5 MG TABLET PO SCH (10:00)
[2016-11-20 14:09] VITALS: BP 123/76
[2016-11-20 17:25] VITALS: BP 113/65
[2016-11-20] MEDS ORDERED: WARFARIN 7.5 MG TABLET PO-COUM SCH (18:00)
[2016-11-20 20:18] VITALS: BP 127/76
[2016-11-20] MEDS: TEMAZEPAM 15 MG CAPSULE PO PRN (21:18)
[2016-11-21 01:21] VITALS: BP 111/74
[2016-11-21] MEDS: PIPERACILLIN/TAZO/PMX 3.375GM 50 ML IV SCH ×4 (02:52→22:11)
[2016-11-21] MEDS: HEPARIN 25,000 UNITS/500ML PMX 500 ML IV PRN (03:54)
[2016-11-21] MEDS: CARVEDILOL 3.125 MG TABLET PO SCH ×2 (04:47→17:24)
[2016-11-21 05:09] LABS: HEMATOCRIT 36.5 % (39.2-51.8); HEMOGLOBIN 11.9 g/dL (13.7-18.0)
[2016-11-21 05:18] LABS: ANTI-Xa-UNFRACTIONATED HEP 0.69 IU/mL (0.30-0.70)
[2016-11-21 05:31] LABS: ASPARTATE AMINO TRANSFERASE 57 U/L (15-37); BLOOD UREA NITROGEN 22 mg/dL (7-18)
[2016-11-21 06:48] VITALS: BP 114/69
[2016-11-21] MEDS: INSULIN REGULAR 100 UNITS/ML, 3ML VIAL SQ-INSULIN SCH ×2 (07:00→11:00)
[2016-11-21] MEDS: ALBUTEROL/IPRATROPIUM 2.5MG/0.5MG, 3 ML NPPB SCH (07:23)
[2016-11-21] MEDS: GLIPizide ER 5 MG TABLET PO SCH (09:29)
[2016-11-21] MEDS: SPIRONOLACTONE 25 MG TABLET PO SCH (09:29)
[2016-11-21] MEDS: FUROSEMIDE 40 MG TABLET PO SCH (09:29)
[2016-11-21] MEDS: LISINOPRIL 5 MG TABLET PO SCH (09:29)
[2016-11-21] MEDS: FAMOTIDINE 20 MG TABLET PO SCH ×2 (09:30→21:16)
[2016-11-21 16:10] VITALS: BP 122/79
[2016-11-21] MEDS ORDERED: WARFARIN 1 MG TABLET PO-COUM SCH (18:00)
[2016-11-21 20:28] VITALS: BP 117/74
[2016-11-21 21:09] VITALS: BP 109/79
[2016-11-21] MEDS: TEMAZEPAM 15 MG CAPSULE PO PRN (22:11)
[2016-11-22] VITALS (7 sets, daily range): BP systolic 113–141; BP diastolic 73–94
[2016-11-22] MEDS: PIPERACILLIN/TAZO/PMX 3.375GM 50 ML IV SCH ×4 (04:08→21:45)
[2016-11-22 05:37] LABS: BLOOD UREA NITROGEN 27 mg/dL (7-18)
[2016-11-22 05:40] LABS: HEMATOCRIT 38.4 % (39.2-51.8); HEMOGLOBIN 12.3 g/dL (13.7-18.0); WHITE BLOOD COUNT 18.8 x10^3/uL (3.4-10)
[2016-11-22] MEDS: CARVEDILOL 3.125 MG TABLET PO SCH ×2 (06:25→17:20)
[2016-11-22] MEDS ORDERED: ALBUTEROL/IPRATROPIUM 2.5MG/0.5MG, 3 ML ONE (07:13)
[2016-11-22] MEDS: FAMOTIDINE 20 MG TABLET PO SCH ×2 (08:06→21:45)
[2016-11-22] MEDS: LISINOPRIL 5 MG TABLET PO SCH (08:06)
[2016-11-22] MEDS: FUROSEMIDE 40 MG TABLET PO SCH (08:07)
[2016-11-22] MEDS: GLIPizide ER 5 MG TABLET PO SCH (08:07)
[2016-11-22] MEDS: SPIRONOLACTONE 25 MG TABLET PO SCH (08:07)
[2016-11-22] MEDS: ALBUTEROL/IPRATROPIUM 2.5MG/0.5MG, 3 ML NPPB SCH (09:40)
[2016-11-22] MEDS ORDERED: WARFARIN 3 MG TABLET PO-COUM SCH (18:00)
[2016-11-22] MEDS: TEMAZEPAM 15 MG CAPSULE PO PRN (21:45)
[2016-11-23] MEDS ORDERED: PNEUMOCOCCAL 23 VACCINE IM-VACC ONE (01:30)
[2016-11-23 03:14] VITALS: BP 124/88
[2016-11-23] MEDS: PIPERACILLIN/TAZO/PMX 3.375GM 50 ML IV SCH ×4 (04:28→21:08)
[2016-11-23] MEDS: CARVEDILOL 3.125 MG TABLET PO SCH ×2 (04:28→17:53)
[2016-11-23 04:55] LABS: HEMATOCRIT 40.3 % (39.2-51.8); HEMOGLOBIN 12.8 g/dL (13.7-18.0); WHITE BLOOD COUNT 20.8 x10^3/uL (3.4-10)
[2016-11-23 05:07] LABS: BLOOD UREA NITROGEN 29 mg/dL (7-18)
[2016-11-23 06:18] LABS: DIFF TOTAL CELLS COUNTED 100 CELL DIFF
[2016-11-23 06:20] LABS: VERIFY COUNTS? YES
[2016-11-23] MEDS: FUROSEMIDE 40 MG TABLET PO SCH (08:39)
[2016-11-23] MEDS: LISINOPRIL 5 MG TABLET PO SCH (08:39)
[2016-11-23] MEDS: SPIRONOLACTONE 25 MG TABLET PO SCH (08:39)
[2016-11-23] MEDS: GLIPizide ER 5 MG TABLET PO SCH (08:39)
[2016-11-23] MEDS: FAMOTIDINE 20 MG TABLET PO SCH ×2 (08:39→21:08)
[2016-11-23 08:40] VITALS: BP 100/66
[2016-11-23] MEDS: ALBUTEROL/IPRATROPIUM 2.5MG/0.5MG, 3 ML NPPB SCH (09:00)
[2016-11-23] MEDS: ENOXAPARIN 80 MG/0.8 ML SQ SCH ×2 (10:39→17:57)
[2016-11-23 13:37] VITALS: BP 97/67
[2016-11-23 16:16] VITALS: BP 113/70
[2016-11-23] MEDS: WARFARIN 2 MG TABLET PO-COUM SCH ×2 (17:53→17:55)
[2016-11-23 17:57] VITALS: BP 115/73
[2016-11-23 20:00] VITALS: BP 109/73
[2016-11-23] MEDS ORDERED: BISACODYL 10 MG SUPP PR PRN (20:00)
[2016-11-23] MEDS ORDERED: DOCUSATE 100 MG CAPSULE PO PRN (20:00)
[2016-11-23] MEDS ORDERED: PHARMACY MAY ADJ FOR RENAL FX MC SCH (20:00)
[2016-11-23] MEDS ORDERED: LACTULOSE 20 GM/30 ML UDC NG PRN (20:00)
[2016-11-24] MEDS: PIPERACILLIN/TAZO/PMX 3.375GM 50 ML IV SCH ×4 (04:33→23:55)
[2016-11-24] MEDS: CARVEDILOL 3.125 MG TABLET PO SCH ×2 (04:34→18:19)
[2016-11-24 04:37] VITALS: BP 109/77
[2016-11-24 05:08] LABS: HEMATOCRIT 39.1 % (39.2-51.8); HEMOGLOBIN 12.6 g/dL (13.7-18.0); WHITE BLOOD COUNT 22.9 x10^3/uL (3.4-10)
[2016-11-24 05:25] LABS: BLOOD UREA NITROGEN 28 mg/dL (7-18)
[2016-11-24 05:26] LABS: ASPARTATE AMINO TRANSFERASE 28 U/L (15-37)
[2016-11-24 06:03] LABS: DIFF TOTAL CELLS COUNTED 100 CELL DIFF
[2016-11-24 06:05] LABS: ANISOCYTOSIS 1+; POLYCHROMASIA 1+; VERIFY COUNTS? YES
[2016-11-24 07:31] VITALS: BP 94/67
[2016-11-24] MEDS ORDERED: LIDOCAINE 1%, 20ML ONE (08:14)
[2016-11-24] MEDS: LISINOPRIL 5 MG TABLET PO SCH (09:00)
[2016-11-24] MEDS: GLIPizide ER 5 MG TABLET PO SCH (09:28)
[2016-11-24] MEDS: FAMOTIDINE 20 MG TABLET PO SCH ×2 (09:28→21:27)
[2016-11-24] MEDS: SPIRONOLACTONE 25 MG TABLET PO SCH (09:28)
[2016-11-24] MEDS: FUROSEMIDE 40 MG TABLET PO SCH (09:28)
[2016-11-24] MEDS: ENOXAPARIN 80 MG/0.8 ML SQ SCH ×2 (09:29→21:27)
[2016-11-24 14:54] VITALS: BP_SYST 93; BP_SYST 96; BP_SYST 99; BP_DIAS 55; BP_DIAS 62; BP_DIAS 63
[2016-11-24] MEDS ORDERED: WARFARIN 5 MG TABLET PO-COUM SCH (18:00)
[2016-11-24 18:21] VITALS: BP 118/66
[2016-11-24] MEDS: ALBUTEROL/IPRATROPIUM 2.5MG/0.5MG, 3 ML NPPB SCH (19:55)
[2016-11-24 20:08] VITALS: BP 102/68
[2016-11-25 04:43] VITALS: BP 112/70
[2016-11-25 04:57] LABS: HEMOGLOBIN 12.5 g/dL (13.7-18.0); WHITE BLOOD COUNT 22.4 x10^3/uL (3.4-10)
[2016-11-25 05:09] LABS: BLOOD UREA NITROGEN 34 mg/dL (7-18)
[2016-11-25] MEDS: PIPERACILLIN/TAZO/PMX 3.375GM 50 ML IV SCH ×4 (05:56→23:50)
[2016-11-25] MEDS: CARVEDILOL 3.125 MG TABLET PO SCH ×2 (05:56→18:06)
[2016-11-25 07:56] VITALS: BP 92/68
[2016-11-25] MEDS: predniSONE 50MG TABLET PO SCH (08:33)
[2016-11-25] MEDS: GLIPizide ER 5 MG TABLET PO SCH (08:33)
[2016-11-25] MEDS: ALBUTEROL/IPRATROPIUM 2.5MG/0.5MG, 3 ML NPPB SCH (09:00)
[2016-11-25] MEDS: LISINOPRIL 5 MG TABLET PO SCH (09:00)
[2016-11-25] MEDS: SPIRONOLACTONE 25 MG TABLET PO SCH (09:11)
[2016-11-25] MEDS: FUROSEMIDE 40 MG TABLET PO SCH (09:11)
[2016-11-25] MEDS: FAMOTIDINE 20 MG TABLET PO SCH ×2 (09:11→21:16)
[2016-11-25] MEDS: ENOXAPARIN 80 MG/0.8 ML SQ SCH ×2 (09:12→21:16)
[2016-11-25 14:00] VITALS: BP 105/69
[2016-11-25] MEDS ORDERED: WARFARIN 7.5 MG TABLET PO-COUM ONE (18:00)
[2016-11-25 18:06] VITALS: BP 109/82
[2016-11-25 19:09] VITALS: BP 106/70
[2016-11-26 01:26] VITALS: BP 112/84
[2016-11-26 05:46] LABS: HEMOGLOBIN 12.8 g/dL (13.7-18.0)
[2016-11-26 05:54] LABS: HEMATOCRIT 39.9 % (39.2-51.8); WHITE BLOOD COUNT 17.6 x10^3/uL (3.4-10)
[2016-11-26] MEDS: PIPERACILLIN/TAZO/PMX 3.375GM 50 ML IV SCH ×3 (05:55→18:05)
[2016-11-26] MEDS: CARVEDILOL 3.125 MG TABLET PO SCH ×2 (05:55→18:06)
[2016-11-26 06:01] LABS: BLOOD UREA NITROGEN 39 mg/dL (7-18)
[2016-11-26] MEDS: GLIPizide ER 5 MG TABLET PO SCH (08:27)
[2016-11-26] MEDS: SPIRONOLACTONE 25 MG TABLET PO SCH (08:28)
[2016-11-26] MEDS: predniSONE 50MG TABLET PO SCH (08:28)
[2016-11-26] MEDS: FUROSEMIDE 40 MG TABLET PO SCH (08:28)
[2016-11-26] MEDS: FAMOTIDINE 20 MG TABLET PO SCH ×2 (08:28→20:46)
[2016-11-26 08:31] VITALS: BP 108/74
[2016-11-26] MEDS: LISINOPRIL 5 MG TABLET PO SCH (08:31)
[2016-11-26] MEDS: ALBUTEROL/IPRATROPIUM 2.5MG/0.5MG, 3 ML NPPB SCH (09:00)
[2016-11-26] MEDS: ENOXAPARIN 80 MG/0.8 ML SQ SCH (09:37)
[2016-11-26 15:20] VITALS: BP 101/56
[2016-11-26 16:35] VITALS: BP 106/59
[2016-11-26] MEDS ORDERED: WARFARIN 7.5 MG TABLET PO-COUM ONE (18:00)
[2016-11-26 18:03] VITALS: BP 103/58
[2016-11-26 19:52] VITALS: BP 124/74
[2016-11-26] MEDS: ENOXAPARIN 60 MG/0.6 ML SQ SCH (20:46)
[2016-11-27] MEDS: PIPERACILLIN/TAZO/PMX 3.375GM 50 ML IV SCH ×5 (00:42→23:58)
[2016-11-27 02:25] VITALS: BP 98/71
[2016-11-27 05:27] LABS: HEMATOCRIT 38.9 % (39.2-51.8); HEMOGLOBIN 12.4 g/dL (13.7-18.0); WHITE BLOOD COUNT 16.7 x10^3/uL (3.4-10)
[2016-11-27 05:42] LABS: BLOOD UREA NITROGEN 39 mg/dL (7-18)
[2016-11-27] MEDS: CARVEDILOL 3.125 MG TABLET PO SCH ×2 (06:16→18:28)
[2016-11-27 07:01] VITALS: BP 90/54
[2016-11-27] MEDS: predniSONE 50MG TABLET PO SCH (08:00)
[2016-11-27] MEDS: ALBUTEROL/IPRATROPIUM 2.5MG/0.5MG, 3 ML NPPB SCH (09:00)
[2016-11-27] MEDS: LISINOPRIL 5 MG TABLET PO SCH (09:23)
[2016-11-27] MEDS: FAMOTIDINE 20 MG TABLET PO SCH ×2 (09:25→20:59)
[2016-11-27] MEDS: FUROSEMIDE 40 MG TABLET PO SCH (09:25)
[2016-11-27] MEDS: SPIRONOLACTONE 25 MG TABLET PO SCH (09:25)
[2016-11-27] MEDS: GLIPizide ER 5 MG TABLET PO SCH (09:25)
[2016-11-27] MEDS: ENOXAPARIN 60 MG/0.6 ML SQ SCH ×2 (09:26→20:59)
[2016-11-27 14:30] VITALS: BP 119/77
[2016-11-27] MEDS ORDERED: WARFARIN 2 MG TABLET PO-COUM SCH (18:00)
[2016-11-27 20:47] VITALS: BP 91/68
[2016-11-28 02:59] VITALS: BP 96/65
[2016-11-28] MEDS: CARVEDILOL 3.125 MG TABLET PO SCH ×2 (05:34→18:27)
[2016-11-28] MEDS: PIPERACILLIN/TAZO/PMX 3.375GM 50 ML IV SCH ×4 (05:45→23:55)
[2016-11-28 06:04] LABS: HEMATOCRIT 39.5 % (39.2-51.8); HEMOGLOBIN 12.8 g/dL (13.7-18.0)
[2016-11-28] MEDS ORDERED: MORPHINE SULFATE 4 MG/ML, 1ML ONE (06:07)
[2016-11-28] MEDS ORDERED: MORPHINE SULFATE 4 MG/ML, 1ML IVPush ONE (06:10)
[2016-11-28 06:11] LABS: BLOOD UREA NITROGEN 34 mg/dL (7-18)
[2016-11-28 06:41] LABS: IS PT STATUS REG ER OR PRE ER? NO
[2016-11-28] MEDS: ALBUTEROL/IPRATROPIUM 2.5MG/0.5MG, 3 ML NPPB SCH (06:59)
[2016-11-28] MEDS ORDERED: ASPIRIN 81 MG TABLET CHEW PO ONE (07:30)
[2016-11-28 07:50] VITALS: BP 111/79
[2016-11-28 07:51] LABS: IS PT STATUS REG ER OR PRE ER? NO
[2016-11-28] MEDS: LISINOPRIL 5 MG TABLET PO SCH (09:19)
[2016-11-28] MEDS: FAMOTIDINE 20 MG TABLET PO SCH ×2 (09:19→21:37)
[2016-11-28] MEDS: FUROSEMIDE 40 MG TABLET PO SCH (09:20)
[2016-11-28] MEDS: GLIPizide ER 5 MG TABLET PO SCH (09:20)
[2016-11-28] MEDS: SPIRONOLACTONE 25 MG TABLET PO SCH (09:20)
[2016-11-28 14:18] LABS: IS PT STATUS REG ER OR PRE ER? NO
[2016-11-28 14:30] VITALS: BP 106/69
[2016-11-28] MEDS ORDERED: WARFARIN 2 MG TABLET PO-COUM ONE (18:00)
[2016-11-28 20:00] VITALS: BP 84/54
[2016-11-28 20:04] LABS: IS PT STATUS REG ER OR PRE ER? NO
[2016-11-29 01:58] LABS: IS PT STATUS REG ER OR PRE ER? NO
[2016-11-29 02:00] VITALS: BP 94/62
[2016-11-29] MEDS: CARVEDILOL 3.125 MG TABLET PO SCH ×2 (05:43→18:24)
[2016-11-29] MEDS: PIPERACILLIN/TAZO/PMX 3.375GM 50 ML IV SCH ×3 (05:46→18:25)
[2016-11-29 05:59] LABS: HEMATOCRIT 38.2 % (39.2-51.8); HEMOGLOBIN 12.3 g/dL (13.7-18.0); WHITE BLOOD COUNT 16.5 x10^3/uL (3.4-10)
[2016-11-29 06:14] LABS: BLOOD UREA NITROGEN 33 mg/dL (7-18)
[2016-11-29] MEDS: ALBUTEROL/IPRATROPIUM 2.5MG/0.5MG, 3 ML NPPB SCH (06:58)
[2016-11-29 07:59] LABS: IS PT STATUS REG ER OR PRE ER? NO
[2016-11-29 08:00] VITALS: BP 74/55
[2016-11-29] MEDS: FUROSEMIDE 40 MG TABLET PO SCH (08:12)
[2016-11-29] MEDS: GLIPizide ER 5 MG TABLET PO SCH (08:12)
[2016-11-29] MEDS: FAMOTIDINE 20 MG TABLET PO SCH ×2 (08:12→20:27)
[2016-11-29] MEDS: SPIRONOLACTONE 25 MG TABLET PO SCH (08:12)
[2016-11-29] MEDS: LISINOPRIL 5 MG TABLET PO SCH (09:00)
[2016-11-29 13:36] LABS: IS PT STATUS REG ER OR PRE ER? NO
[2016-11-29 13:57] VITALS: BP 104/68
[2016-11-29] MEDS ORDERED: WARFARIN 2 MG TABLET PO-COUM ONE (18:00)
[2016-11-29 19:34] VITALS: BP 112/74
[2016-11-29 19:36] LABS: IS PT STATUS REG ER OR PRE ER? NO
[2016-11-29] MEDS: TEMAZEPAM 15 MG CAPSULE PO PRN (20:27)
[2016-11-30] MEDS: PIPERACILLIN/TAZO/PMX 3.375GM 50 ML IV SCH ×4 (00:03→17:19)
[2016-11-30 00:43] VITALS: BP 100/74
[2016-11-30 05:18] LABS: HEMATOCRIT 37.1 % (39.2-51.8); WHITE BLOOD COUNT 15.5 x10^3/uL (3.4-10)
[2016-11-30 05:26] LABS: BLOOD UREA NITROGEN 32 mg/dL (7-18)
[2016-11-30] MEDS: CARVEDILOL 3.125 MG TABLET PO SCH ×2 (05:52→17:18)
[2016-11-30] MEDS: FUROSEMIDE 40 MG TABLET PO SCH (07:15)
[2016-11-30] MEDS: FAMOTIDINE 20 MG TABLET PO SCH ×2 (07:16→20:37)
[2016-11-30] MEDS: SPIRONOLACTONE 25 MG TABLET PO SCH (07:16)
[2016-11-30] MEDS: LISINOPRIL 5 MG TABLET PO SCH (07:16)
[2016-11-30] MEDS: ALBUTEROL/IPRATROPIUM 2.5MG/0.5MG, 3 ML NPPB SCH (07:21)
[2016-11-30 07:35] VITALS: BP 102/66
[2016-11-30 13:16] VITALS: BP 98/66
[2016-11-30] MEDS ORDERED: ALBUTEROL/IPRATROPIUM 2.5MG/0.5MG, 3 ML NPPB PRN ×2 (15:00→19:30)
[2016-11-30] MEDS ORDERED: WARFARIN 5 MG TABLET PO-COUM SCH (18:00)
[2016-11-30] MEDS ORDERED: DOCUSATE 100 MG CAPSULE PO PRN (19:30)
[2016-11-30] MEDS ORDERED: BISACODYL 10 MG SUPP PR PRN (19:30)
[2016-11-30] MEDS ORDERED: PHARMACY MAY ADJ FOR RENAL FX MC SCH (19:30)
[2016-11-30] MEDS ORDERED: LACTULOSE 20 GM/30 ML UDC NG PRN (19:30)
[2016-11-30 19:35] VITALS: BP 92/69
[2016-11-30] MEDS: TEMAZEPAM 15 MG CAPSULE PO PRN (20:37)
[2016-12-01] MEDS: PIPERACILLIN/TAZO/PMX 3.375GM 50 ML IV SCH ×4 (00:07→17:30)
[2016-12-01 01:12] VITALS: BP 98/67
[2016-12-01 05:11] LABS: HEMATOCRIT 36.8 % (39.2-51.8); WHITE BLOOD COUNT 12.4 x10^3/uL (3.4-10)
[2016-12-01 05:35] LABS: ASPARTATE AMINO TRANSFERASE 28 U/L (15-37); BLOOD UREA NITROGEN 29 mg/dL (7-18)
[2016-12-01 08:32] VITALS: BP 104/60
[2016-12-01] MEDS: FAMOTIDINE 20 MG TABLET PO SCH ×2 (08:38→20:26)
[2016-12-01] MEDS: SPIRONOLACTONE 25 MG TABLET PO SCH (08:38)
[2016-12-01] MEDS: CARVEDILOL 3.125 MG TABLET PO SCH ×2 (08:38→17:30)
[2016-12-01] MEDS: LISINOPRIL 5 MG TABLET PO SCH (08:38)
[2016-12-01] MEDS: FUROSEMIDE 40 MG TABLET PO SCH (08:40)
[2016-12-01] MEDS ORDERED: FUROSEMIDE 40 MG TABLET PO SCH (09:00)
[2016-12-01 15:30] VITALS: BP 102/69
[2016-12-01] MEDS ORDERED: WARFARIN 7.5 MG TABLET PO-COUM SCH (18:00)
[2016-12-01 20:00] VITALS: BP 100/58
[2016-12-01] MEDS: ENOXAPARIN 60 MG/0.6 ML SQ SCH (20:26)
[2016-12-02] VITALS (9 sets, daily range): BP systolic 83–114; BP diastolic 47–69
[2016-12-02] MEDS: PIPERACILLIN/TAZO/PMX 3.375GM 50 ML IV SCH ×4 (00:14→17:28)
[2016-12-02] MEDS: TEMAZEPAM 15 MG CAPSULE PO PRN (00:16)
[2016-12-02 05:43] LABS: HEMATOCRIT 37.6 % (39.2-51.8); HEMOGLOBIN 12.5 g/dL (13.7-18.0); WHITE BLOOD COUNT 12.2 x10^3/uL (3.4-10)
[2016-12-02 05:49] LABS: BLOOD UREA NITROGEN 29 mg/dL (7-18)
[2016-12-02] MEDS: FUROSEMIDE 40 MG TABLET PO SCH (08:59)
[2016-12-02] MEDS: CARVEDILOL 3.125 MG TABLET PO SCH ×2 (09:00→17:34)
[2016-12-02] MEDS: LISINOPRIL 5 MG TABLET PO SCH (09:00)
[2016-12-02] MEDS: SPIRONOLACTONE 25 MG TABLET PO SCH (09:00)
[2016-12-02] MEDS: FAMOTIDINE 20 MG TABLET PO SCH ×2 (09:00→20:10)
[2016-12-02] MEDS: ENOXAPARIN 60 MG/0.6 ML SQ SCH ×2 (09:06→20:10)
[2016-12-02] MEDS: ACETAMINOPHEN 325 MG TABLET PO PRN (17:54)
[2016-12-03] MEDS: PIPERACILLIN/TAZO/PMX 3.375GM 50 ML IV SCH ×4 (00:22→18:00)
[2016-12-03 01:00] VITALS: BP 97/67
[2016-12-03 04:56] LABS: HEMATOCRIT 36.6 % (39.2-51.8); HEMOGLOBIN 11.9 g/dL (13.7-18.0); WHITE BLOOD COUNT 9.1 x10^3/uL (3.4-10)
[2016-12-03 05:06] LABS: BLOOD UREA NITROGEN 26 mg/dL (7-18)
[2016-12-03] MEDS: ENOXAPARIN 60 MG/0.6 ML SQ SCH ×2 (07:31→20:00)
[2016-12-03 07:57] VITALS: BP 102/67
[2016-12-03] MEDS: CARVEDILOL 3.125 MG TABLET PO SCH ×2 (07:58→19:00)
[2016-12-03] MEDS: SPIRONOLACTONE 25 MG TABLET PO SCH (07:58)
[2016-12-03] MEDS: FAMOTIDINE 20 MG TABLET PO SCH ×2 (07:59→21:00)
[2016-12-03] MEDS: FUROSEMIDE 40 MG TABLET PO SCH (07:59)
[2016-12-03] MEDS: LISINOPRIL 5 MG TABLET PO SCH (07:59)
[2016-12-03] MEDS ORDERED: BUPIVACAINE/PF-EPI 0.5% 1:200K ONE (10:52)
[2016-12-03 15:29] VITALS: BP 92/62
[2016-12-03] MEDS ORDERED: EPINEPHRINE 1 MG in SODIUM CHLORIDE 0.9% 249 ML IV PRN (15:30)
[2016-12-03] MEDS ORDERED: TALC 30 GM AERO.PWD INTRAPL ONE (17:07)
[2016-12-03] MEDS ORDERED: PIPERACILLIN/TAZO 3.375GM/50ML ONE (17:17)
[2016-12-03] MEDS ORDERED: ROCURONIUM 10 MG/ML ONE ×3 (17:17)
[2016-12-03] MEDS ORDERED: EPINEPHRINE 1 MG/ML, 1ML ONE (17:17)
[2016-12-03] MEDS ORDERED: SUCCINYLCHOLINE 20 MG/ML, 10ML ONE (17:17)
[2016-12-03] MEDS ORDERED: PROPOFOL 10 MG/ML, 20ML ONE (17:17)
[2016-12-03] MEDS ORDERED: KETAMINE 10 MG/ML, 20ML ONE (17:17)
[2016-12-03] MEDS ORDERED: FENTANYL PF 100 MCG/2ML ONE (17:21)
[2016-12-03] MEDS ORDERED: PROPOFOL 100 ML IV ONE (19:18)
[2016-12-03] MEDS: PROPOFOL 100 ML IV PRN (20:00)
[2016-12-03] MEDS: HYDROmorphone 1 MG/ML, 1ML IV PRN (21:25)
[2016-12-03] MEDS: ALBUTEROL/IPRATROPIUM 2.5MG/0.5MG, 3 ML INLINE SCH (22:45)
[2016-12-04] MEDS ORDERED: LIDOCAINE-MPF 1%, 2ML ENDO PRN
[2016-12-04] MEDS ORDERED: PHARMACY MAY ADJ FOR RENAL FX MC SCH
[2016-12-04] MEDS: PIPERACILLIN/TAZO/PMX 3.375GM 50 ML IV SCH ×5 (00:03→23:42)
[2016-12-04] MEDS: ALBUTEROL/IPRATROPIUM 2.5MG/0.5MG, 3 ML INLINE SCH ×3 (01:21→07:22)
[2016-12-04] MEDS: HYDROmorphone 1 MG/ML, 1ML IV PRN ×3 (03:07→12:27)
[2016-12-04 04:00] VITALS: BP 116/74
[2016-12-04 04:32] LABS: HEMATOCRIT 37.9 % (39.2-51.8); HEMOGLOBIN 12.4 g/dL (13.7-18.0); WHITE BLOOD COUNT 10.5 x10^3/uL (3.4-10)
[2016-12-04 04:44] LABS: BLOOD UREA NITROGEN 23 mg/dL (7-18)
[2016-12-04 04:47] LABS: ASPARTATE AMINO TRANSFERASE 29 U/L (15-37)
[2016-12-04 04:53] LABS: ABG COLLECTION SITE ARTERIAL LINE
[2016-12-04] MEDS: CARVEDILOL 3.125 MG TABLET PO SCH ×2 (06:00→17:45)
[2016-12-04] MEDS: PROPOFOL 100 ML IV PRN (07:11)
[2016-12-04] MEDS: ENOXAPARIN 60 MG/0.6 ML SQ SCH ×2 (08:38→21:01)
[2016-12-04] MEDS: SPIRONOLACTONE 25 MG TABLET PO SCH (08:38)
[2016-12-04] MEDS: FUROSEMIDE 40 MG TABLET PO SCH (08:39)
[2016-12-04] MEDS: LISINOPRIL 5 MG TABLET PO SCH (08:39)
[2016-12-04] MEDS: FAMOTIDINE 20 MG TABLET PO SCH ×2 (08:39→21:01)
[2016-12-04] MEDS: OxyconTIN ER 10 MG TAB.ER PO PRN (19:03)
[2016-12-05 04:00] VITALS: BP 104/65
[2016-12-05 04:57] LABS: ABG COLLECTION SITE RIGHT BRACHIAL
[2016-12-05 05:09] LABS: HEMATOCRIT 31.5 % (39.2-51.8); HEMOGLOBIN 10.2 g/dL (13.7-18.0); WHITE BLOOD COUNT 6.6 x10^3/uL (3.4-10)
[2016-12-05 05:26] LABS: BLOOD UREA NITROGEN 20 mg/dL (7-18)
[2016-12-05 05:50] VITALS: BP 107/73
[2016-12-05] MEDS: PIPERACILLIN/TAZO/PMX 3.375GM 50 ML IV SCH ×3 (06:26→20:06)
[2016-12-05] MEDS: CARVEDILOL 3.125 MG TABLET PO SCH ×2 (06:27→20:34)
[2016-12-05] MEDS: FUROSEMIDE 40 MG TABLET PO SCH (08:00)
[2016-12-05] MEDS: SPIRONOLACTONE 25 MG TABLET PO SCH (08:00)
[2016-12-05] MEDS: FAMOTIDINE 20 MG TABLET PO SCH ×2 (08:00→20:06)
[2016-12-05] MEDS: ENOXAPARIN 60 MG/0.6 ML SQ SCH ×2 (08:00→20:34)
[2016-12-05] MEDS: LISINOPRIL 5 MG TABLET PO SCH (08:00)
[2016-12-05 08:03] VITALS: BP 108/68
[2016-12-05] MEDS: OxyconTIN ER 10 MG TAB.ER PO PRN (08:05)
[2016-12-05] MEDS ORDERED: ALBUTEROL/IPRATROPIUM 2.5MG/0.5MG, 3 ML NPPB PRN (11:00)
[2016-12-05] MEDS ORDERED: HYDROmorphone 1 MG/ML, 1ML IV PRN (11:30)
[2016-12-05 12:47] VITALS: BP 83/53
[2016-12-05 19:11] VITALS: BP 89/58
[2016-12-05 20:10] VITALS: BP 96/52
[2016-12-06 02:15] VITALS: BP 92/63
[2016-12-06 02:16] VITALS: BP 92/63
[2016-12-06] MEDS: TEMAZEPAM 15 MG CAPSULE PO PRN ×2 (02:17→22:06)
[2016-12-06] MEDS: PIPERACILLIN/TAZO/PMX 3.375GM 50 ML IV SCH ×4 (02:18→20:13)
[2016-12-06 06:03] LABS: BLOOD UREA NITROGEN 21 mg/dL (7-18)
[2016-12-06 06:06] LABS: HEMATOCRIT 29.1 % (39.2-51.8); HEMOGLOBIN 9.8 g/dL (13.7-18.0); WHITE BLOOD COUNT 5.1 x10^3/uL (3.4-10)
[2016-12-06 07:41] VITALS: BP 90/56
[2016-12-06] MEDS: SPIRONOLACTONE 25 MG TABLET PO SCH (08:02)
[2016-12-06] MEDS: ENOXAPARIN 60 MG/0.6 ML SQ SCH ×2 (08:02→20:14)
[2016-12-06] MEDS: LISINOPRIL 5 MG TABLET PO SCH (08:02)
[2016-12-06] MEDS: CARVEDILOL 3.125 MG TABLET PO SCH ×2 (08:03→17:10)
[2016-12-06] MEDS: FAMOTIDINE 20 MG TABLET PO SCH ×2 (08:03→20:14)
[2016-12-06] MEDS: FUROSEMIDE 40 MG TABLET PO SCH (08:05)
[2016-12-06 12:55] VITALS: BP 91/55
[2016-12-06 20:07] VITALS: BP 92/57
[2016-12-06] MEDS: ACETAMINOPHEN 325 MG TABLET PO PRN (20:13)
[2016-12-07 02:20] VITALS: BP 101/71
[2016-12-07] MEDS: PIPERACILLIN/TAZO/PMX 3.375GM 50 ML IV SCH ×4 (02:21→19:28)
[2016-12-07 05:38] LABS: HEMATOCRIT 32.1 % (39.2-51.8); HEMOGLOBIN 10.5 g/dL (13.7-18.0)
[2016-12-07 05:50] LABS: BLOOD UREA NITROGEN 19 mg/dL (7-18)
[2016-12-07 06:41] VITALS: BP 97/65
[2016-12-07 08:02] VITALS: BP 95/66
[2016-12-07] MEDS: FAMOTIDINE 20 MG TABLET PO SCH ×2 (08:04→19:28)
[2016-12-07] MEDS: FUROSEMIDE 40 MG TABLET PO SCH (08:04)
[2016-12-07] MEDS: CARVEDILOL 3.125 MG TABLET PO SCH ×2 (08:04→16:25)
[2016-12-07] MEDS: LISINOPRIL 5 MG TABLET PO SCH (08:04)
[2016-12-07] MEDS: ENOXAPARIN 60 MG/0.6 ML SQ SCH ×2 (08:04→19:28)
[2016-12-07] MEDS: SPIRONOLACTONE 25 MG TABLET PO SCH (08:04)
[2016-12-07] MEDS ORDERED: SENNOSIDES 8.8 MG/5 ML ORAL SOL NG PRN (15:00)
[2016-12-07] MEDS ORDERED: HYDROmorphone 1 MG/ML, 1ML IV PRN (15:00)
[2016-12-07] MEDS ORDERED: PHARMACY MAY ADJ FOR RENAL FX MC SCH (15:00)
[2016-12-07] MEDS ORDERED: SENNA/DOCUSATE TABLET NG PRN (15:00)
[2016-12-07] MEDS ORDERED: DOCUSATE 100 MG CAPSULE PO PRN (15:00)
[2016-12-07] MEDS ORDERED: POLYETHYLENE GLYCOL 17 GM PACKET PO PRN (15:00)
[2016-12-07] MEDS ORDERED: BISACODYL 10 MG SUPP PR PRN (15:00)
[2016-12-07] MEDS ORDERED: ALBUTEROL/IPRATROPIUM 2.5MG/0.5MG, 3 ML NPPB PRN (15:00)
[2016-12-07] MEDS ORDERED: LACTULOSE 20 GM/30 ML UDC NG PRN (15:00)
[2016-12-07 16:24] VITALS: BP 112/87
[2016-12-07 19:11] VITALS: BP 92/58
[2016-12-07] MEDS: ACETAMINOPHEN 325 MG TABLET PO PRN (19:28)
[2016-12-08] MEDS: PIPERACILLIN/TAZO/PMX 3.375GM 50 ML IV SCH ×2 (02:06→08:30)
[2016-12-08] MEDS: TEMAZEPAM 15 MG CAPSULE PO PRN ×2 (02:25→21:30)
[2016-12-08 03:43] VITALS: BP 101/66
[2016-12-08 05:27] LABS: HEMATOCRIT 32.7 % (39.2-51.8); HEMOGLOBIN 10.6 g/dL (13.7-18.0)
[2016-12-08 05:34] LABS: BLOOD UREA NITROGEN 22 mg/dL (7-18)
[2016-12-08] MEDS: CARVEDILOL 3.125 MG TABLET PO SCH ×2 (06:11→18:17)
[2016-12-08 07:45] VITALS: BP 94/56
[2016-12-08] MEDS: SPIRONOLACTONE 25 MG TABLET PO SCH (08:30)
[2016-12-08] MEDS: FAMOTIDINE 20 MG TABLET PO SCH ×2 (08:30→19:25)
[2016-12-08] MEDS: FUROSEMIDE 40 MG TABLET PO SCH (08:30)
[2016-12-08] MEDS: LISINOPRIL 5 MG TABLET PO SCH (08:30)
[2016-12-08] MEDS: ENOXAPARIN 60 MG/0.6 ML SQ SCH ×2 (08:31→19:25)
[2016-12-08] MEDS: POTASSIUM ACID PHOSPHATE 500 MG TABLET.SOL PO SCH ×3 (08:31→19:25)
[2016-12-08] MEDS: PIPERACILLIN/TAZO/PMX 4.5GM 100 ML IV SCH ×2 (12:13→19:25)
[2016-12-08 13:50] VITALS: BP 94/56
[2016-12-08 18:16] VITALS: BP 111/67
[2016-12-09 00:49] VITALS: BP 103/70
[2016-12-09] MEDS: PIPERACILLIN/TAZO/PMX 4.5GM 100 ML IV SCH ×3 (02:59→19:41)
[2016-12-09 04:43] LABS: HEMATOCRIT 34.6 % (39.2-51.8); HEMOGLOBIN 11.6 g/dL (13.7-18.0); WHITE BLOOD COUNT 3.1 x10^3/uL (3.4-10)
[2016-12-09 04:49] LABS: BLOOD UREA NITROGEN 20 mg/dL (7-18)
[2016-12-09 05:05] LABS: DIFF TOTAL CELLS COUNTED 100 CELL DIFF
[2016-12-09 05:09] LABS: VERIFY COUNTS? YES
[2016-12-09] MEDS: CARVEDILOL 3.125 MG TABLET PO SCH ×2 (06:18→17:05)
[2016-12-09 07:37] VITALS: BP 95/64
[2016-12-09] MEDS: LISINOPRIL 5 MG TABLET PO SCH (08:41)
[2016-12-09] MEDS: FAMOTIDINE 20 MG TABLET PO SCH ×2 (08:41→19:41)
[2016-12-09] MEDS: ENOXAPARIN 60 MG/0.6 ML SQ SCH ×2 (08:41→19:41)
[2016-12-09] MEDS: SPIRONOLACTONE 25 MG TABLET PO SCH (08:41)
[2016-12-09] MEDS: FUROSEMIDE 40 MG TABLET PO SCH (08:41)
[2016-12-09] MEDS: POTASSIUM ACID PHOSPHATE 500 MG TABLET.SOL PO SCH ×3 (08:41→19:41)
[2016-12-09 15:46] VITALS: BP 97/62
[2016-12-09 19:02] VITALS: BP 107/63
[2016-12-09] MEDS: TEMAZEPAM 15 MG CAPSULE PO PRN (20:53)
[2016-12-10 02:00] VITALS: BP 99/68
[2016-12-10] MEDS: PIPERACILLIN/TAZO/PMX 4.5GM 100 ML IV SCH ×2 (03:23→11:16)
[2016-12-10] MEDS: ACETAMINOPHEN 325 MG TABLET PO PRN (05:50)
[2016-12-10] MEDS: CARVEDILOL 3.125 MG TABLET PO SCH ×2 (05:56→17:27)
[2016-12-10 06:47] LABS: BLOOD UREA NITROGEN 23 mg/dL (7-18)
[2016-12-10 06:52] LABS: HEMATOCRIT 37.6 % (39.2-51.8); HEMOGLOBIN 12.4 g/dL (13.7-18.0); WHITE BLOOD COUNT 2.3 x10^3/uL (3.4-10)
[2016-12-10 07:33] LABS: DIFF TOTAL CELLS COUNTED 100 CELL DIFF
[2016-12-10 08:15] LABS: VERIFY COUNTS? YES
[2016-12-10 08:56] VITALS: BP 103/70
[2016-12-10] MEDS: FAMOTIDINE 20 MG TABLET PO SCH ×2 (09:01→21:47)
[2016-12-10] MEDS: LISINOPRIL 5 MG TABLET PO SCH (09:01)
[2016-12-10] MEDS: SPIRONOLACTONE 25 MG TABLET PO SCH (09:01)
[2016-12-10] MEDS: FUROSEMIDE 40 MG TABLET PO SCH (09:01)
[2016-12-10] MEDS: POTASSIUM ACID PHOSPHATE 500 MG TABLET.SOL PO SCH ×3 (09:01→21:47)
[2016-12-10] MEDS: ENOXAPARIN 60 MG/0.6 ML SQ SCH (09:02)
[2016-12-10 12:45] VITALS: BP 90/66
[2016-12-10] MEDS: ERTAPENEM 1 GM in SODIUM CHLORIDE 0.9% 50 ML IV SCH (14:20)
[2016-12-10 17:30] VITALS: BP_SYST 90; BP_SYST 99; BP_DIAS 63; BP_DIAS 67
[2016-12-10 19:40] VITALS: BP 98/63
[2016-12-11 04:00] VITALS: BP 109/70
[2016-12-11 05:26] LABS: HEMATOCRIT 35.1 % (39.2-51.8); HEMOGLOBIN 11.7 g/dL (13.7-18.0); WHITE BLOOD COUNT 2.2 x10^3/uL (3.4-10)
[2016-12-11 05:40] LABS: BLOOD UREA NITROGEN 20 mg/dL (7-18)
[2016-12-11 05:58] LABS: DIFF TOTAL CELLS COUNTED 100 CELL DIFF
[2016-12-11 06:00] LABS: VERIFY COUNTS? YES
[2016-12-11] MEDS: RIVAROXABAN 20 MG TABLET PO SCH (06:00)
[2016-12-11] MEDS: CARVEDILOL 3.125 MG TABLET PO SCH ×2 (06:00→17:32)
[2016-12-11 06:03] LABS: ANISOCYTOSIS 1+
[2016-12-11 07:34] VITALS: BP 99/68
[2016-12-11] MEDS: SPIRONOLACTONE 25 MG TABLET PO SCH (09:04)
[2016-12-11] MEDS: FAMOTIDINE 20 MG TABLET PO SCH ×2 (09:04→19:33)
[2016-12-11] MEDS: LISINOPRIL 5 MG TABLET PO SCH (09:04)
[2016-12-11] MEDS: FUROSEMIDE 40 MG TABLET PO SCH (09:04)
[2016-12-11] MEDS ORDERED: TBO-FILGRASTIM 300 MCG/0.5 ML SQ ONE (10:30)
[2016-12-11 12:59] VITALS: BP 110/56
[2016-12-11] MEDS: ERTAPENEM 1 GM in SODIUM CHLORIDE 0.9% 50 ML IV SCH (14:06)
[2016-12-11 19:21] VITALS: BP 88/59
[2016-12-11] MEDS: TEMAZEPAM 15 MG CAPSULE PO PRN (21:52)
[2016-12-12 00:07] VITALS: BP 91/56
[2016-12-12 05:16] LABS: BLOOD UREA NITROGEN 20 mg/dL (7-18)
[2016-12-12 05:18] LABS: HEMATOCRIT 36.1 % (39.2-51.8); WHITE BLOOD COUNT 2.8 x10^3/uL (3.4-10)
[2016-12-12] MEDS: RIVAROXABAN 20 MG TABLET PO SCH (05:56)
[2016-12-12] MEDS: CARVEDILOL 3.125 MG TABLET PO SCH ×2 (05:56→18:58)
[2016-12-12 05:57] LABS: DIFF TOTAL CELLS COUNTED 100 CELL DIFF
[2016-12-12 06:00] LABS: ANISOCYTOSIS 1+; VERIFY COUNTS? YES
[2016-12-12 06:47] VITALS: BP 115/79
[2016-12-12] MEDS ORDERED: TBO-FILGRASTIM 300 MCG/0.5 ML SQ ONE (07:30)
[2016-12-12] MEDS: SPIRONOLACTONE 25 MG TABLET PO SCH (11:21)
[2016-12-12] MEDS: FAMOTIDINE 20 MG TABLET PO SCH ×2 (11:21→20:07)
[2016-12-12] MEDS: LISINOPRIL 5 MG TABLET PO SCH (11:21)
[2016-12-12] MEDS: FUROSEMIDE 40 MG TABLET PO SCH (11:21)
[2016-12-12 14:14] VITALS: BP 99/65
[2016-12-12] MEDS: ERTAPENEM 1 GM in SODIUM CHLORIDE 0.9% 50 ML IV SCH (14:30)
[2016-12-12 18:45] VITALS: BP 106/67
[2016-12-13 01:53] VITALS: BP 99/65
[2016-12-13 05:48] LABS: HEMATOCRIT 37.6 % (39.2-51.8); HEMOGLOBIN 12.4 g/dL (13.7-18.0); WHITE BLOOD COUNT 2.7 x10^3/uL (3.4-10)
[2016-12-13 06:04] LABS: BLOOD UREA NITROGEN 18 mg/dL (7-18)
[2016-12-13 06:10] VITALS: BP 126/56
[2016-12-13] MEDS: CARVEDILOL 3.125 MG TABLET PO SCH ×2 (06:22→17:31)
[2016-12-13] MEDS: RIVAROXABAN 20 MG TABLET PO SCH (06:22)
[2016-12-13 06:47] LABS: DIFF TOTAL CELLS COUNTED 100 CELL DIFF
[2016-12-13 06:51] LABS: ANISOCYTOSIS 1+
[2016-12-13 06:52] LABS: VERIFY COUNTS? YES
[2016-12-13] MEDS: SPIRONOLACTONE 25 MG TABLET PO SCH (08:18)
[2016-12-13] MEDS: LISINOPRIL 5 MG TABLET PO SCH (08:18)
[2016-12-13] MEDS: FUROSEMIDE 40 MG TABLET PO SCH (08:18)
[2016-12-13] MEDS: FAMOTIDINE 20 MG TABLET PO SCH ×2 (08:19→20:52)
[2016-12-13] MEDS ORDERED: TBO-FILGRASTIM 480 MCG/0.8 ML SQ ONE (08:30)
[2016-12-13 09:36] LABS: DIFF TOTAL CELLS COUNTED 100 CELL DIFF; HEMATOCRIT 36.8 % (39.2-51.8); HEMOGLOBIN 12.1 g/dL (13.7-18.0); WHITE BLOOD COUNT 3.3 x10^3/uL (3.4-10)
[2016-12-13 09:44] LABS: ANISOCYTOSIS 1+; VERIFY COUNTS? YES
[2016-12-13] MEDS: ERTAPENEM 1 GM in SODIUM CHLORIDE 0.9% 50 ML IV SCH (14:00)
[2016-12-13 14:22] VITALS: BP 89/37
[2016-12-13] MEDS: ACETAMINOPHEN 325 MG TABLET PO PRN (17:31)
[2016-12-13 17:32] VITALS: BP 92/42
[2016-12-13 19:29] VITALS: BP 168/84
[2016-12-13 20:27] VITALS: BP 94/66
[2016-12-14 00:16] VITALS: BP 94/47
[2016-12-14 05:46] VITALS: BP 88/50
[2016-12-14] MEDS: CARVEDILOL 3.125 MG TABLET PO SCH ×2 (05:47→18:00)
[2016-12-14] MEDS: RIVAROXABAN 20 MG TABLET PO SCH (05:47)
[2016-12-14 05:56] LABS: BLOOD UREA NITROGEN 27 mg/dL (7-18); HEMATOCRIT 39.1 % (39.2-51.8); HEMOGLOBIN 12.9 g/dL (13.7-18.0); WHITE BLOOD COUNT 3.8 x10^3/uL (3.4-10)
[2016-12-14 06:21] LABS: DIFF TOTAL CELLS COUNTED 100 CELL DIFF
[2016-12-14 06:26] LABS: ANISOCYTOSIS 1+; LARGE PLATELETS 1+; VERIFY COUNTS? YES
[2016-12-14 08:37] VITALS: BP 99/48
[2016-12-14] MEDS: LISINOPRIL 5 MG TABLET PO SCH (09:00)
[2016-12-14] MEDS: SPIRONOLACTONE 25 MG TABLET PO SCH (09:23)
[2016-12-14] MEDS: FUROSEMIDE 40 MG TABLET PO SCH (09:24)
[2016-12-14] MEDS: TBO-FILGRASTIM 480 MCG/0.8 ML SQ SCH (09:24)
[2016-12-14 13:24] VITALS: BP 95/62
[2016-12-14] MEDS ORDERED: PHARMACY MAY ADJ FOR RENAL FX MC SCH (15:00)
[2016-12-14] MEDS ORDERED: DOCUSATE 100 MG CAPSULE PO PRN (15:00)
[2016-12-14] MEDS ORDERED: ALBUTEROL/IPRATROPIUM 2.5MG/0.5MG, 3 ML NPPB PRN (15:00)
[2016-12-14] MEDS ORDERED: POLYETHYLENE GLYCOL 17 GM PACKET PO PRN (15:00)
[2016-12-14] MEDS ORDERED: BISACODYL 10 MG SUPP PR PRN (15:00)
[2016-12-14] MEDS ORDERED: LACTULOSE 20 GM/30 ML UDC NG PRN (15:00)
[2016-12-14 18:35] VITALS: BP 112/52
[2016-12-14] MEDS: ACETAMINOPHEN 325 MG TABLET PO PRN (18:41)
[2016-12-15 01:27] VITALS: BP 97/57
[2016-12-15] MEDS: ACETAMINOPHEN 325 MG TABLET PO PRN ×2 (01:43→19:15)
[2016-12-15 05:21] LABS: BLOOD UREA NITROGEN 19 mg/dL (7-18)
[2016-12-15 05:26] LABS: HEMOGLOBIN 12.7 g/dL (13.7-18.0); WHITE BLOOD COUNT 8.2 x10^3/uL (3.4-10)
[2016-12-15 06:03] LABS: DIFF TOTAL CELLS COUNTED 100 CELL DIFF
[2016-12-15 06:08] LABS: ANISOCYTOSIS 1+; LARGE PLATELETS 1+; VERIFY COUNTS? YES
[2016-12-15] MEDS: RIVAROXABAN 20 MG TABLET PO SCH (06:14)
[2016-12-15] MEDS: CARVEDILOL 3.125 MG TABLET PO SCH ×2 (06:14→18:00)
[2016-12-15 07:25] VITALS: BP 113/65
[2016-12-15] MEDS: LISINOPRIL 5 MG TABLET PO SCH (08:58)
[2016-12-15] MEDS: SPIRONOLACTONE 25 MG TABLET PO SCH (08:58)
[2016-12-15] MEDS: FUROSEMIDE 40 MG TABLET PO SCH (08:58)
[2016-12-15 13:26] VITALS: BP 95/50
[2016-12-15] MEDS ORDERED: LIDOCAINE 1%, 20ML ONE (14:51)
[2016-12-15] MEDS ORDERED: MIDAZOLAM 1 MG/ML, 5ML ONE (15:11)
[2016-12-15] MEDS ORDERED: FENTANYL PF 100 MCG/2ML ONE (15:11)
[2016-12-15] MEDS: TBO-FILGRASTIM 480 MCG/0.8 ML SQ SCH (17:54)
[2016-12-15] MEDS: ERTAPENEM 1 GM in SODIUM CHLORIDE 0.9% 50 ML IV SCH (17:54)
[2016-12-15 19:10] VITALS: BP 106/44
[2016-12-16 03:30] VITALS: BP 102/56
[2016-12-16] MEDS: OxyconTIN ER 10 MG TAB.ER PO PRN ×2 (03:41→18:49)
[2016-12-16] MEDS: CARVEDILOL 3.125 MG TABLET PO SCH ×2 (05:35→18:00)
[2016-12-16] MEDS: RIVAROXABAN 20 MG TABLET PO SCH (05:35)
[2016-12-16 05:43] LABS: HEMATOCRIT 39.4 % (39.2-51.8); HEMOGLOBIN 12.9 g/dL (13.7-18.0); WHITE BLOOD COUNT 21.5 x10^3/uL (3.4-10)
[2016-12-16 06:09] LABS: BLOOD UREA NITROGEN 20 mg/dL (7-18); DIFF TOTAL CELLS COUNTED 100 CELL DIFF
[2016-12-16 06:25] LABS: ANISOCYTOSIS 1+; VERIFY COUNTS? YES
[2016-12-16 06:26] LABS: LARGE PLATELETS 1+
[2016-12-16 06:27] LABS: POLYCHROMASIA 1+
[2016-12-16 06:58] LABS: GIANT PLATELETS 1+
[2016-12-16 07:57] VITALS: BP 90/57
[2016-12-16] MEDS: LISINOPRIL 5 MG TABLET PO SCH (09:00)
[2016-12-16] MEDS: FUROSEMIDE 40 MG TABLET PO SCH (10:47)
[2016-12-16] MEDS: SPIRONOLACTONE 25 MG TABLET PO SCH (10:47)
[2016-12-16 13:05] VITALS: BP 91/58
[2016-12-16] MEDS: ERTAPENEM 1 GM in SODIUM CHLORIDE 0.9% 50 ML IV SCH (18:46)
[2016-12-16 22:08] VITALS: BP 92/56
[2016-12-17 05:26] LABS: BLOOD UREA NITROGEN 20 mg/dL (7-18)
[2016-12-17 05:45] LABS: HEMATOCRIT 38.3 % (39.2-51.8); HEMOGLOBIN 12.6 g/dL (13.7-18.0)
[2016-12-17 05:56] LABS: WHITE BLOOD COUNT 53.3 x10^3/uL (3.4-10)
[2016-12-17 06:16] VITALS: BP 100/56
[2016-12-17 06:18] LABS: DIFF TOTAL CELLS COUNTED 100 CELL DIFF
[2016-12-17] MEDS: RIVAROXABAN 20 MG TABLET PO SCH (06:19)
[2016-12-17] MEDS: CARVEDILOL 3.125 MG TABLET PO SCH ×2 (06:19→18:16)
[2016-12-17 06:32] LABS: VERIFY COUNTS? YES
[2016-12-17 06:33] LABS: ANISOCYTOSIS 1+; POLYCHROMASIA 1+
[2016-12-17 06:35] LABS: LARGE PLATELETS 1+
[2016-12-17 08:15] VITALS: BP 91/56
[2016-12-17] MEDS: LISINOPRIL 5 MG TABLET PO SCH (08:22)
[2016-12-17] MEDS: SPIRONOLACTONE 25 MG TABLET PO SCH (08:23)
[2016-12-17] MEDS: FUROSEMIDE 40 MG TABLET PO SCH (08:23)
[2016-12-17 14:14] VITALS: BP 95/55
[2016-12-17] MEDS: ACETAMINOPHEN 325 MG TABLET PO PRN (16:47)
[2016-12-17] MEDS: ERTAPENEM 1 GM in SODIUM CHLORIDE 0.9% 50 ML IV SCH (18:12)
[2016-12-17 18:16] VITALS: BP 137/48
[2016-12-17 18:53] VITALS: BP 96/60
[2016-12-17] MEDS: OxyconTIN ER 10 MG TAB.ER PO PRN (19:36)
[2016-12-18 05:44] VITALS: BP 96/63
[2016-12-18 05:44] LABS: HEMATOCRIT 40.5 % (39.2-51.8); HEMOGLOBIN 13.3 g/dL (13.7-18.0)
[2016-12-18] MEDS: RIVAROXABAN 20 MG TABLET PO SCH (05:47)
[2016-12-18] MEDS: CARVEDILOL 3.125 MG TABLET PO SCH ×2 (05:47→18:16)
[2016-12-18 05:57] LABS: WHITE BLOOD COUNT 51.7 x10^3/uL (3.4-10)
[2016-12-18 06:09] LABS: DIFF TOTAL CELLS COUNTED 100 CELL DIFF
[2016-12-18 06:16] LABS: VERIFY COUNTS? YES
[2016-12-18 06:21] LABS: ANISOCYTOSIS 1+; POLYCHROMASIA 1+
[2016-12-18 06:23] LABS: LARGE PLATELETS 1+
[2016-12-18 09:00] VITALS: BP 99/60
[2016-12-18] MEDS: LISINOPRIL 5 MG TABLET PO SCH (09:00)
[2016-12-18] MEDS: FUROSEMIDE 40 MG TABLET PO SCH (09:10)
[2016-12-18] MEDS: SPIRONOLACTONE 25 MG TABLET PO SCH (09:10)
[2016-12-18 13:04] VITALS: BP 92/55
[2016-12-18] MEDS: ERTAPENEM 1 GM in SODIUM CHLORIDE 0.9% 50 ML IV SCH (18:14)
[2016-12-18 18:17] VITALS: BP 105/46
[2016-12-18] MEDS: OxyconTIN ER 10 MG TAB.ER PO PRN (19:34)
[2016-12-18 21:16] VITALS: BP 98/64
[2016-12-19 02:00] VITALS: BP 93/68
[2016-12-19 05:09] LABS: HEMATOCRIT 39.9 % (39.2-51.8); HEMOGLOBIN 13.1 g/dL (13.7-18.0); WHITE BLOOD COUNT 46.7 x10^3/uL (3.4-10)
[2016-12-19 06:07] VITALS: BP 100/65
[2016-12-19] MEDS: RIVAROXABAN 20 MG TABLET PO SCH (06:07)
[2016-12-19] MEDS: CARVEDILOL 3.125 MG TABLET PO SCH ×2 (06:08→18:18)
[2016-12-19 06:27] LABS: DIFF TOTAL CELLS COUNTED 100 CELL DIFF
[2016-12-19 06:32] LABS: VERIFY COUNTS? YES
[2016-12-19 06:33] LABS: ANISOCYTOSIS 1+; POLYCHROMASIA 1+
[2016-12-19 06:36] LABS: LARGE PLATELETS 1+
[2016-12-19 06:52] VITALS: BP 95/62
[2016-12-19] MEDS: FUROSEMIDE 40 MG TABLET PO SCH (08:45)
[2016-12-19] MEDS: LISINOPRIL 5 MG TABLET PO SCH (08:45)
[2016-12-19] MEDS: SPIRONOLACTONE 25 MG TABLET PO SCH (08:45)
[2016-12-19 13:28] VITALS: BP 95/43
[2016-12-19 18:18] VITALS: BP 99/47
[2016-12-19] MEDS: ERTAPENEM 1 GM in SODIUM CHLORIDE 0.9% 50 ML IV SCH (18:18)
[2016-12-19] MEDS: OxyconTIN ER 10 MG TAB.ER PO PRN (20:29)
[2016-12-20 02:59] VITALS: BP 103/73
[2016-12-20 05:20] LABS: HEMOGLOBIN 12.7 g/dL (13.7-18.0); WHITE BLOOD COUNT 33.7 x10^3/uL (3.4-10)
[2016-12-20 05:51] LABS: DIFF TOTAL CELLS COUNTED 100 CELL DIFF
[2016-12-20 06:15] LABS: ANISOCYTOSIS 1+; VERIFY COUNTS? YES
[2016-12-20 06:16] LABS: POLYCHROMASIA 1+
[2016-12-20 06:17] LABS: LARGE PLATELETS 1+
[2016-12-20] MEDS: RIVAROXABAN 20 MG TABLET PO SCH (06:48)
[2016-12-20] MEDS: CARVEDILOL 3.125 MG TABLET PO SCH ×2 (06:49→18:00)
[2016-12-20 07:12] VITALS: BP_SYST 68; BP_SYST 98; BP_DIAS 73
[2016-12-20 08:57] VITALS: BP 89/45
[2016-12-20] MEDS: SPIRONOLACTONE 25 MG TABLET PO SCH (08:59)
[2016-12-20] MEDS: LISINOPRIL 5 MG TABLET PO SCH (08:59)
[2016-12-20] MEDS: FUROSEMIDE 40 MG TABLET PO SCH (08:59)
[2016-12-20 13:35] VITALS: BP 96/57
[2016-12-20 18:21] VITALS: BP 90/42
[2016-12-20] MEDS: ERTAPENEM 1 GM in SODIUM CHLORIDE 0.9% 50 ML IV SCH (18:23)
[2016-12-20 20:40] VITALS: BP 93/64
[2016-12-20] MEDS: OxyconTIN ER 10 MG TAB.ER PO PRN (22:26)
[2016-12-21 03:22] VITALS: BP 102/65
[2016-12-21 06:03] LABS: HEMATOCRIT 39.5 % (39.2-51.8); WHITE BLOOD COUNT 23.8 x10^3/uL (3.4-10)
[2016-12-21] MEDS: CARVEDILOL 3.125 MG TABLET PO SCH ×2 (06:37→18:09)
[2016-12-21] MEDS: RIVAROXABAN 20 MG TABLET PO SCH (06:37)
[2016-12-21 06:50] LABS: DIFF TOTAL CELLS COUNTED 100 CELL DIFF
[2016-12-21 07:18] LABS: ANISOCYTOSIS 1+; VERIFY COUNTS? YES
[2016-12-21 07:20] VITALS: BP 91/63
[2016-12-21] MEDS: SPIRONOLACTONE 25 MG TABLET PO SCH (08:44)
[2016-12-21] MEDS: LISINOPRIL 5 MG TABLET PO SCH (08:45)
[2016-12-21] MEDS: FUROSEMIDE 40 MG TABLET PO SCH (08:45)
[2016-12-21 14:11] VITALS: BP 108/67
[2016-12-21 18:08] VITALS: BP 104/52
[2016-12-21] MEDS: ERTAPENEM 1 GM in SODIUM CHLORIDE 0.9% 50 ML IV SCH (18:09)
[2016-12-22 03:52] VITALS: BP 118/74
[2016-12-22 05:19] LABS: BLOOD UREA NITROGEN 18 mg/dL (7-18); HEMATOCRIT 38.7 % (39.2-51.8); HEMOGLOBIN 12.6 g/dL (13.7-18.0); WHITE BLOOD COUNT 16.9 x10^3/uL (3.4-10)
[2016-12-22 05:30] LABS: ASPARTATE AMINO TRANSFERASE 297 U/L (15-37)
[2016-12-22 06:01] LABS: DIFF TOTAL CELLS COUNTED 100 CELL DIFF
[2016-12-22 06:04] LABS: ANISOCYTOSIS 1+; VERIFY COUNTS? YES
[2016-12-22] MEDS: CARVEDILOL 3.125 MG TABLET PO SCH ×2 (06:48→17:59)
[2016-12-22] MEDS: RIVAROXABAN 20 MG TABLET PO SCH (06:48)
[2016-12-22 07:08] VITALS: BP 93/61
[2016-12-22] MEDS: LISINOPRIL 5 MG TABLET PO SCH (09:00)
[2016-12-22] MEDS: SPIRONOLACTONE 25 MG TABLET PO SCH (09:00)
[2016-12-22] MEDS: FUROSEMIDE 40 MG TABLET PO SCH (09:00)
[2016-12-22 13:27] VITALS: BP 100/65
[2016-12-22] MEDS: ERTAPENEM 1 GM in SODIUM CHLORIDE 0.9% 50 ML IV SCH (17:58)
[2016-12-22 18:03] VITALS: BP 103/58
[2016-12-22] MEDS: TEMAZEPAM 15 MG CAPSULE PO PRN (19:59)
[2016-12-22 20:26] VITALS: BP 97/50
[2016-12-23 03:40] VITALS: BP 96/61
[2016-12-23 04:55] LABS: HEMOGLOBIN 12.7 g/dL (13.7-18.0); WHITE BLOOD COUNT 13.6 x10^3/uL (3.4-10)
[2016-12-23 05:36] LABS: DIFF TOTAL CELLS COUNTED 100 CELL DIFF
[2016-12-23 05:38] LABS: VERIFY COUNTS? YES
[2016-12-23 05:39] LABS: ANISOCYTOSIS 1+
[2016-12-23] MEDS: RIVAROXABAN 20 MG TABLET PO SCH (06:46)
[2016-12-23] MEDS: CARVEDILOL 3.125 MG TABLET PO SCH ×2 (06:46→17:57)
[2016-12-23 07:18] VITALS: BP 101/72
[2016-12-23] MEDS: SPIRONOLACTONE 25 MG TABLET PO SCH (09:00)
[2016-12-23] MEDS: LISINOPRIL 5 MG TABLET PO SCH (09:00)
[2016-12-23] MEDS: FUROSEMIDE 40 MG TABLET PO SCH (09:00)
[2016-12-23 13:18] VITALS: BP 112/63
[2016-12-23] MEDS: ERTAPENEM 1 GM in SODIUM CHLORIDE 0.9% 50 ML IV SCH (17:57)
[2016-12-23 19:00] VITALS: BP 104/61
[2016-12-24] MEDS: TEMAZEPAM 15 MG CAPSULE PO PRN (00:45)
[2016-12-24] MEDS: RIVAROXABAN 20 MG TABLET PO SCH (06:30)
[2016-12-24] MEDS: CARVEDILOL 3.125 MG TABLET PO SCH ×2 (06:30→18:53)
[2016-12-24 07:09] VITALS: BP 113/79
[2016-12-24] MEDS: LISINOPRIL 5 MG TABLET PO SCH (11:00)
[2016-12-24] MEDS: FUROSEMIDE 40 MG TABLET PO SCH (11:00)
[2016-12-24] MEDS: SPIRONOLACTONE 25 MG TABLET PO SCH (11:00)
[2016-12-24 12:58] VITALS: BP 103/69
[2016-12-24] MEDS: ERTAPENEM 1 GM in SODIUM CHLORIDE 0.9% 50 ML IV SCH (18:52)
[2016-12-24 20:01] VITALS: BP 98/72
[2016-12-24] MEDS: OxyconTIN ER 10 MG TAB.ER PO PRN (23:20)
[2016-12-25 02:00] VITALS: BP 112/52
[2016-12-25 05:09] LABS: HEMATOCRIT 37.2 % (39.2-51.8); HEMOGLOBIN 12.2 g/dL (13.7-18.0); WHITE BLOOD COUNT 11.3 x10^3/uL (3.4-10)
[2016-12-25 05:32] LABS: ASPARTATE AMINO TRANSFERASE 157 U/L (15-37); BLOOD UREA NITROGEN 23 mg/dL (7-18)
[2016-12-25] MEDS: CARVEDILOL 3.125 MG TABLET PO SCH (08:11)
[2016-12-25] MEDS: RIVAROXABAN 20 MG TABLET PO SCH (08:11)
[2016-12-25 08:15] VITALS: BP 99/68
[2016-12-25] MEDS: FUROSEMIDE 40 MG TABLET PO SCH (08:26)
[2016-12-25] MEDS: LISINOPRIL 5 MG TABLET PO SCH (08:26)
[2016-12-25] MEDS: SPIRONOLACTONE 25 MG TABLET PO SCH (08:26)
[2016-12-25 14:15] VITALS: BP 91/56
== END 2016-12-25 16:36 | disposition home or self-care (01) | DRG 853 ==
LOC: ED 09:47 → EDIP 11:53 → ICU 12:41 → CCU 11-14 17:32 → 5SO 11-17 12:53 → 4NOR 11-23 19:30 → 3NE 11-27 12:42 → 5SO 11-28 07:52 → CCU 12-03 19:11 → ICU 12-04 15:40 → 5SO 12-05 05:42 → 4NOR 12-10 18:57 → DCLOUNGE 12-25 16:07
PROVIDERS: ADMIT Hospitalist; ATTEND Hospitalist
PROC: 02HV33Z Insertion of Infusion Device into Superior Vena Cava, Percutaneous Approach (ICD-10-PCS; principal; 2016-11-13)
PROC: 0BH17EZ Insertion of Endotracheal Airway into Trachea, Via Natural or Artificial Opening (ICD-10-PCS; 2016-11-13)
PROC: 0W9930Z Drainage of Right Pleural Cavity with Drainage Device, Percutaneous Approach (ICD-10-PCS; 2016-11-17)
PROC: 0W9930Z Drainage of Right Pleural Cavity with Drainage Device, Percutaneous Approach (ICD-10-PCS; 2016-11-24)
PROC: 0BDN4ZZ Extraction of Right Pleura, Percutaneous Endoscopic Approach (ICD-10-PCS; 2016-12-03)
PROC: 0BBF4ZZ Excision of Right Lower Lung Lobe, Percutaneous Endoscopic Approach (ICD-10-PCS; 2016-12-03)
PROC: 0W9930Z Drainage of Right Pleural Cavity with Drainage Device, Percutaneous Approach (ICD-10-PCS; 2016-12-15)
DX: A41.9 Sepsis, unspecified organism (principal); J96.01 Acute respiratory failure with hypoxia; N17.0 Acute kidney failure with tubular necrosis; R65.21 Severe sepsis with septic shock; J86.9 Pyothorax without fistula; I50.23 Acute on chronic systolic (congestive) heart failure; E43 Unspecified severe protein-calorie malnutrition; E83.42 Hypomagnesemia; I24.8 Other forms of acute ischemic heart disease; J85.0 Gangrene and necrosis of lung; J15.9 Unspecified bacterial pneumonia; J85.1 Abscess of lung with pneumonia; I47.2 Ventricular tachycardia; I50.22 Chronic systolic (congestive) heart failure; I42.9 Cardiomyopathy, unspecified; J44.0 Chronic obstructive pulmonary disease with (acute) lower respiratory infection; E87.1 Hypo-osmolality and hyponatremia; J93.9 Pneumothorax, unspecified; J98.11 Atelectasis; I11.0 Hypertensive heart disease with heart failure; E83.39 Other disorders of phosphorus metabolism; D72.823 Leukemoid reaction; E11.9 Type 2 diabetes mellitus without complications; F17.210 Nicotine dependence, cigarettes, uncomplicated; I34.0 Nonrheumatic mitral (valve) insufficiency; I27.2 Other secondary pulmonary hypertension; B96.89 Other specified bacterial agents as the cause of diseases classified elsewhere; D70.9 Neutropenia, unspecified; F10.20 Alcohol dependence, uncomplicated; F15.10 Other stimulant abuse, uncomplicated; I25.10 Atherosclerotic heart disease of native coronary artery without angina pectoris; K66.0 Peritoneal adhesions (postprocedural) (postinfection); K76.1 Chronic passive congestion of liver; T38.0X5A Adverse effect of glucocorticoids and synthetic analogues, initial encounter; Z68.21 Body mass index [BMI] 21.0-21.9, adult; Z79.01 Long term (current) use of anticoagulants; Z80.3 Family history of malignant neoplasm of breast; Z83.3 Family history of diabetes mellitus; Z82.49 Family history of ischemic heart disease and other diseases of the circulatory system; Z87.11 Personal history of peptic ulcer disease; Z88.5 Allergy status to narcotic agent; Z88.0 Allergy status to penicillin; Z79.84 Long term (current) use of oral hypoglycemic drugs
CPT/HCPCS: 31500; 32551; 32555; 32557; 36415; 36600; 71010; 71020; 71035; 71250; 74176; 80048; 80053; 80076; 80202; 80307; 81001; 82040; 82150; 82728; 82803; 82945; 82962; 83036; 83605; 83615; 83735; 83880; 83986; 84100; 84145; 84157; 84478; 84484; 85025; 85520; 85610; 85651; 85730; 86038; 86140; 86850; 86900; 86923; 87040; 87070; 87075; 87081; 87102; 87116; 87176; 87205; 87206; 88112; 88304; 88305; 89051; 93005; 93306; 94002; 94003; 94150; 94640; 96365; 96366; 96375; 99156; 99157; C1729; J0171; J1170; J1335; J1644; J1650; J1815; J1956; J2250; J2543; J2704; J3010; J3360; J3370; J3490; J7620; C1769; J0330; J1447; J2920; J2930; J7030; J7040; J7050; J7512; S0028